=== PATIENT | male | born 1940 | race Caucasian/White ===

== ENCOUNTER 2022-05-17 18:37 | Inpatient (IN) | payer MEDICARE ==
[~2022-05-17] VITALS: Ht 172.7 cm; Wt 88.7 kg
--- NOTE | 2022-05-17 19:04 | ED Dyspnea ---
General Stated Complaint: FLU SYMPTOMS Source of Information: Patient Exam Limitations: No Limitations History of Present Illness Date Seen by Provider: May 17, 2022 Time Seen by Provider: 18:40 Initial Comments 81-year-old male presents emergency department today for shortness of breath. He denies any fevers but does have diffuse body aches. He has a productive cough which is no change from previous. He does have remote history of lung cancer but is currently cancer free. He has had a lobectomy and chemotherapy. He is having some mid central chest pains, mostly with inspiration. Is described as a pressure. He does have an oxygen concentrator at home that he uses as needed. For the last couple of days he has been using it nika crp-zkv-pryvk. Also has a history of COPD, coronary artery disease and CHF. He denies any current peripheral edema. No orthopnea. Allergies and Home Medications Allergies Coded Allergies: Penicillins (Verified Allergy, Unknown, 05/17/22) levofloxacin (Verified Allergy, Unknown, 05/17/22) Patient Home Medication List Home Medication List Reviewed: Yes Review of Systems Review of Systems Constitutional: weakness EENTM: nose congestion Respiratory: cough, phlegm, short of breath Cardiovascular: chest pain Gastrointestinal: no symptoms reported Genitourinary: no symptoms reported Musculoskeletal: muscle pain Skin: no symptoms reported Psychiatric/Neurological: No Symptoms Reported Endocrine: No Symptoms Reported Hematologic/Lymphatic: No Symptoms Reported Past Flkxihu-Wbsnau-Bflkzp Hx Patient Social History Tobacco Use?: No Use of E-Cig and/or Vaping dev: No Substance use?: No Alcohol Use?: No Past Medical History Surgery/Hospitalization HX: COPD, CHF, CAD, HTN, Lung CA, HLP Surgeries: Yes Family Medical History Reviewed Nursing Family Hx No Pertinent Family Hx Physical Exam Vital Signs Vital Signs - First Documented 05/17/22 18:38 Temp 37.2 Pulse 115 Resp 22 B/P (MAP) 96/54 (68) Pulse Ox 95 O2 Delivery Nasal Cannula O2 Flow Rate 3.00 Capillary Refill : Height, Weight, BMI Height: '" Weight: lbs. oz. kg; BMI Method: General Appearance: No Apparent Distress, WD/WN HEENT: PERRL/EOMI, Other (Dry mucus membranes) Neck: Normal Inspection, Non Tender Respiratory: Chest Non Tender, No Accessory Muscle Use, Other (Decreased breath sounds bilaterally, worse in the right base.) Cardiovascular: No Edema, No Murmur, Normal Peripheral Pulses, Tachycardia, Other (hypotension) Gastrointestinal: Normal Bowel Sounds, No Organomegaly, Non Tender, Soft Extremity: Normal Capillary Refill, Normal Inspection, Normal Range of Motion, Non Tender, No Calf Tenderness Neurologic/Psychiatric: Alert, Oriented x3, No Motor/Sensory Deficits Skin: Normal Color, Warm/Dry Lymphatic: No Adenopathy Focused Exam Lactate Level 05/17/22 18:56: Lactic Acid Level 2.45*H Lactic Acid Level Laboratory Tests Test 05/17/22 18:56 Lactic Acid Level 2.45 MMOL/L (0.50-2.00) *H Progress/Results/Core Measures Results/Orders Lab Results Laboratory Tests Test 05/17/22 18:50 05/17/22 18:56 05/17/22 19:24 Range/Units Influenza Type A (RT-PCR) Not Detected Not Detecte Influenza Type B (RT-PCR) Not Detected Not Detecte SARS-CoV-2 RNA (RT-PCR) Not Detected Not Detecte White Blood Count 16.5 H 4.3-11.0 10^3/uL Red Blood Count 3.78 L 4.30-5.52 10^6/uL Hemoglobin 12.3 L 13.3-17.7 g/dL Hematocrit 36 L 40-54 % Mean Corpuscular Volume 94 80-99 fL Mean Corpuscular Hemoglobin 33 25-34 pg Mean Corpuscular Hemoglobin Concent 35 32-36 g/dL Red Cell Distribution Width 16.4 H 10.0-14.5 % Platelet Count 170 130-400 10^3/uL Mean Platelet Volume 10.7 9.0-12.2 fL Immature Granulocyte % (Auto) 3 % Neutrophils (%) (Auto) 91 H 42-75 % Lymphocytes (%) (Auto) 3 L 12-44 % Monocytes (%) (Auto) 2 0-12 % Eosinophils (%) (Auto) 0 0-10 % Basophils (%) (Auto) 1 0-10 % Neutrophils # (Auto) 15.0 H 1.8-7.8 10^3/uL Lymphocytes # (Auto) 0.4 L 1.0-4.0 10^3/uL Monocytes # (Auto) 0.4 0.0-1.0 10^3/uL Eosinophils # (Auto) 0.0 0.0-0.3 10^3/uL Basophils # (Auto) 0.1 0.0-0.1 10^3/uL Immature Granulocyte # (Auto) 0.6 H 0.0-0.1 10^3/uL Neutrophils % (Manual) 52 % Lymphocytes % (Manual) 3 % Monocytes % (Manual) 2 % Eosinophils % (Manual) 1 % Basophils % (Manual) 0 % Metamyelocytes % 1 % Band Neutrophils 41 % Prothrombin Time 13.8 12.2-14.7 SEC INR Comment 1.0 0.8-1.4 Activated Partial Thromboplast Time 29 24-35 SEC Sodium Level 135 135-145 MMOL/L Potassium Level 3.3 L 3.6-5.0 MMOL/L Chloride Level 100 98-107 MMOL/L Carbon Dioxide Level 21 21-32 MMOL/L Anion Gap 14 5-14 MMOL/L Blood Urea Nitrogen 50 H 7-18 MG/DL Creatinine 1.54 H 0.60-1.30 MG/DL Estimat Glomerular Filtration Rate 45 BUN/Creatinine Ratio 32 Glucose Level 115 H 70-105 MG/DL Lactic Acid Level 2.45 *H 0.50-2.00 MMOL/L Calcium Level 8.7 8.5-10.1 MG/DL Corrected Calcium 9.3 8.5-10.1 MG/DL Total Bilirubin 1.1 H 0.1-1.0 MG/DL Aspartate Amino Transf (AST/SGOT) 96 H 5-34 U/L Alanine Aminotransferase (ALT/SGPT) 76 H 0-55 U/L Alkaline Phosphatase 107 40-136 U/L Troponin I < 0.30 <0.30 NG/ML Total Protein 6.9 6.4-8.2 GM/DL Albumin 3.2 3.2-4.5 GM/DL Urine Color YELLOW Urine Clarity CLEAR Urine pH 5.5 5-9 Urine Specific [place] 1.015 L 1.016-1.022 Urine Protein NEGATIVE NEGATIVE Urine Glucose (UA) NEGATIVE NEGATIVE Urine Ketones NEGATIVE NEGATIVE Urine Nitrite NEGATIVE NEGATIVE Urine Bilirubin NEGATIVE NEGATIVE Urine Urobilinogen 1.0 < = 1.0 MG/DL Urine Leukocyte Esterase NEGATIVE NEGATIVE Urine RBC (Auto) TRACE-I H NEGATIVE Urine RBC RARE /HPF Urine WBC RARE /HPF Urine Squamous Epithelial Cells 0-2 /HPF Urine Crystals NONE /LPF Urine Bacteria NEGATIVE /HPF Urine Casts PRESENT /LPF Urine Hyaline Casts RARE /LPF Urine Mucus NEGATIVE /LPF Urine Culture Indicated NO My Orders Orders - EREN VALENZUELA DO Cbc With Automated Diff (05/17/22 18:47) Comprehensive Metabolic Panel (05/17/22 18:47) Blood Culture (05/17/22 18:47) Urinalysis (05/17/22 18:47) Urine Culture (05/17/22 18:47) Protime With Inr (05/17/22 18:47) Partial Thromboplastin Time (05/17/22 18:47) Chest 1 View Ap/Pa Only (05/17/22 18:47) Ed Iv/Invasive Line Start (05/17/22 18:47) Vital Signs Adult Sepsis Patie Q15M (05/17/22 18:47) O2 (05/17/22 18:47) Remove Rings In Anticipation O (05/17/22 18:47) Lactic Acid Analyzer (05/17/22 18:47) Influenza A And B By Pcr (05/17/22 18:47) Covid 19 Inhouse Test (05/17/22 18:47) Ns Iv 500 Ml (Sodium Chloride 0.9%) (05/17/22 19:00) Troponin I Fs (05/17/22 18:57) Ekg Tracing (05/17/22 18:57) Monitor-Rhythm Ecg Trace Only (05/17/22 19:04) Manual Differential (05/17/22 18:56) Ceftriaxone 1 Gm Pre-Mix (Rocephin 1 Gm (05/17/22 19:15) Vancomycin Injection (Vancomycin Injecti (05/17/22 20:00) Ed Admission (Communication) (05/17/22 19:52) Medications Given in ED Current Medications Medications Dose Ordered Sig/Jana Route Start Time Stop Time Status Last Admin Dose Admin Ceftriaxone Sodium/Dextrose 50 ml @ 100 mls/hr ONCE ONCE IV 05/17/22 19:15 05/17/22 19:44 DC 05/17/22 19:19 100 MLS/HR Vancomycin HCl 1000 mg/Sodium Chloride 250 ml @ 250 mls/hr ONCE ONCE IV 05/17/22 20:00 05/17/22 20:59 DC 05/17/22 20:15 250 MLS/HR Vital Signs/I&O 1/3/23 1/3/23 1/3/23 18:38 20:34 20:41 Temp 37.2 Pulse 115 101 103 Resp 22 24 18 B/P (MAP) 96/54 (68) 69/43 95/72 (80) Pulse Ox 95 91 92 O2 Delivery Nasal Cannula Nasal Cannula Nasal Cannula O2 Flow Rate 3.00 3.00 3.00 05/18/22 00:00 Intake Total 675 ml Balance 675 ml Comment Sinus tachycardia with rate of 114 beats rhythm. Normal intervals. Left axis deviation. Q waves in the inferior leads. No ST or T wave abnormalities. No ectopy. No STEMI. Critical Care Note Critical Care Total Time (minutes) 45 Departure Communication (Admissions) Time/Spoke to Admitting Phy: 19:[address] Palafox about the patient presentation. She is comfortable transfer and accepts the patient to the ICU. Request inpatient care and states she will do acute orders. Patient remained borderline hypotensive throughout his emergency department stay, 90s systolic. This was persistent despite IV fluids. He has a MAP greater than 65. His tachycardia improved with IV fluids. He was hypoxic initially, 87-88% on room air. He does use as needed oxygen at home. He was placed on 2 L of oxygen via nasal cannula and maintained 92 to 94% thereafter. He is in the respiratory distress. Chest x-ray shows left lower lobe infiltrate. He started on Rocephin and vancomycin after identification of this. His COVID test and influenza testing are negative. There is one blood pressure reading in the chart of 63/43 which I believe to be erroneous. After this was taken I immediately went and readjust the blood pressure cuff and his blood pressure was 95/72. He remained alert and oriented relatively asymptomatic at this time I spoke with Dr. Sepulveda, she accepts the patient in transfer to the ICU [facility] in [place]. The patient initially did want to go to [facility]. I did speak with them prior to speaking with the physician at [place] and they were at capacity and cannot accept any transfers. Patient does have a mild elevation in his BUN and creatinine, I suspect the IV fluids he was given will likely help with this as is likely related to mild dehydration. He does meet sepsis criteria. Blood cultures were obtained prior to administration of IV antibiotics. He does not meet criteria for 30 cc/kg fluid bolus at this time. I have been judicious with fluids up until this point as the patient has a history of CHF and I do not want to cause volume overload. There is no evidence for ACS, PE. Impression Primary Impression: CAP (community acquired pneumonia) Qualified Codes: J18.9 - Pneumonia, unspecified organism Additional Impressions: Sepsis Qualified Codes: A41.9 - Sepsis, unspecified organism Hypotension Qualified Codes: I95.9 - Hypotension, unspecified Hypoxia Disposition: 30 STILL A PATIENT Condition: Stable Admissions Decision to Admit Reason: Admit from ER (General) Decision to Admit/Date: May 17, 2022 Time/Decision to Admit Time: 19:40 EREN VALENZUELA DO May 17, 2022 19:04
[2022-05-17 19:05] LABS: BASOPHILS # (AUTO) 0.1 10^3/uL (0.0-0.1); BASOPHILS % (AUTO) 1 % (0-10); EOSINOPHILS % (AUTO) 0 % (0-10); HEMATOCRIT 36 % (40-54); HEMOGLOBIN 12.3 g/dL (13.3-17.7); LYMPHOCYTES # (AUTO) 0.4 10^3/uL (1.0-4.0); LYMPHOCYTES % (AUTO) 3 % (12-44); MEAN CORPUSCULAR HEMOGLOBIN 33 pg (25-34); MEAN CORPUSCULAR HGB CONC 35 g/dL (32-36); MEAN CORPUSCULAR VOLUME 94 fL (80-99); MEAN PLATELET VOLUME 10.7 fL (9.0-12.2); MONOCYTES # (AUTO) 0.4 10^3/uL (0.0-1.0); MONOCYTES % (AUTO) 2 % (0-12); NEUTROPHILS % (AUTO) 91 % (42-75); PLATELET COUNT 170 10^3/uL (130-400); WHITE BLOOD COUNT 16.5 10^3/uL (4.3-11.0)
[2022-05-17] MEDS ORDERED: cefTRIAXone 1 GM PRE-MIX 50 ML IV ONE (19:15)
[2022-05-17 19:19] LABS: PROTHROMBIN TIME PATIENT 13.8 SEC (12.2-14.7)
[2022-05-17] MEDS: NS IV 500 ML 500 ML IV SCH ×2 (19:20→22:34)
--- NOTE | 2022-05-17 19:25 | Diagnostic Imaging Report ---
INDICATION: Dyspnea and hypoxia. Time of Exam: 7:02 PM No prior studies are available for comparison. The heart size is normal. There is some infiltrate in the left base obscuring the left hemidiaphragm. Right lung is clear. No effusion or pneumothorax is detected. IMPRESSION: Left basilar pneumonia. Dictated by: Dictated on workstation # [id number]
[2022-05-17 19:29] LABS: BILIRUBIN,TOTAL 1.1 MG/DL (0.1-1.0); BUN/CREATININE RATIO 32; CALCIUM 8.7 MG/DL (8.5-10.1); CARBON DIOXIDE 21 MMOL/L (21-32); CHLORIDE 100 MMOL/L (98-107); CREATININE SERUM 1.54 MG/DL (0.60-1.30); GFR ESTIMATED 45; GLUCOSE 115 MG/DL (70-105); POTASSIUM 3.3 MMOL/L (3.6-5.0); SODIUM 135 MMOL/L (135-145)
[2022-05-17 19:30] LABS: ALANINE AMINOTRANSFERASE 76 U/L (0-55); ALBUMIN 3.2 GM/DL (3.2-4.5); ALKALINE PHOSPHATASE 107 U/L (40-136); TOTAL PROTEIN 6.9 GM/DL (6.4-8.2)
[2022-05-17 19:39] LABS: BAND NEUTROPHILS 41 %; BASOPHILS % (MANUAL) 0 %; EOSINOPHILS % (MANUAL) 1 %; LYMPHOCYTES % (MANUAL) 3 %; MONOCYTES % (MANUAL) 2 %; NEUTROPHILS % (MANUAL) 52 %
[2022-05-17 19:40] LABS: METAMYELOCYTES % 1 %
[2022-05-17 19:44] LABS: BILIRUBIN,URINE NEGATIVE (NEGATIVE); CLARITY,URINE CLEAR; COLOR,URINE YELLOW; GLUCOSE, URINE (UA) NEGATIVE (NEGATIVE); KETONES,URINE NEGATIVE (NEGATIVE); LEUKOCYTE ESTERASE ,URINE NEGATIVE (NEGATIVE); NITRITE,URINE NEGATIVE (NEGATIVE); PH,URINE 5.5 (5-9); PROTEIN,URINE NEGATIVE (NEGATIVE)
[2022-05-17 19:48] LABS: BACTERIA,URINE NEGATIVE /HPF; RBC,URINE RARE /HPF; WBC,URINE RARE /HPF
[2022-05-17 19:49] LABS: HYALINE CASTS, URINE RARE /LPF; SQUAMOUS EPITHELIAL CELL,UR 0-2 /HPF
[2022-05-17] MEDS ORDERED: VANCOMYCIN INJECTION 1,000 MG in NS (IVPB) 250 ML IV ONE (20:00)
[2022-05-17] MEDS ORDERED: NS IV 500 ML 500 ML IV PRN (21:45)
[2022-05-17] MEDS ORDERED: diphenhydrAMINE 50 MG/ML INJ (BENADRYL) IVP PRN (21:45)
[2022-05-17] MEDS ORDERED: HYDROmorphone 2 MG/ML VIAL (DILAUDID) IV PRN (21:45)
[2022-05-17] MEDS ORDERED: polyethylene glycoL POWDER 17 GM (MIRALAX) PACK PO PRN (21:45)
[2022-05-17] MEDS ORDERED: ONDANSETRON 4 MG/2 ML (SDV) Z0FRAN IV PRN (21:45)
[2022-05-17] MEDS ORDERED: ANTACID SUSP 30 ML UDC (MYLANTA) PO PRN (21:45)
[2022-05-17] MEDS ORDERED: BISACODYL 10 MG SUPP (DULCOLAX) PR PRN (21:45)
[2022-05-17] MEDS ORDERED: LORazepam INJ 2 MG/ML (ATIVAN) VIAL IVP PRN (21:45)
[2022-05-17] MEDS ORDERED: VANCOMYCIN INJECTION 0.1 MG in NS (IVPB) 250 ML IV SCH (21:45)
[2022-05-17] MEDS ORDERED: LORazepam 0.5 MG (ATIVAN) TABLET PO PRN (21:45)
[2022-05-17] MEDS ORDERED: diphenhydrAMINE 25 MG TAB (BENADRYL) PO PRN (21:45)
[2022-05-17] MEDS ORDERED: ONDANSETRON 4 MG (ZOFRAN) ORAL DISSOLVE TAB PO PRN (21:45)
[2022-05-17] MEDS ORDERED: MELATONIN 3 MG TABLET PO PRN (21:45)
[2022-05-17 21:55] VITALS: BP 96/54
[2022-05-17] MEDS ORDERED: NS IV 1000 ML 1,000 ML ONE (21:55)
[2022-05-17] MEDS: NS IV 1000 ML 1,000 ML IV SCH (22:00)
[2022-05-17] MEDS ORDERED: RT-ALBUTEROL/IPRATROPIUM 3 ML (DUONEB) VIAL INH PRN (22:00)
[2022-05-17] MEDS ORDERED: VANCOMYCIN 500 MG/NS 100 ML IV ONE ×2 (22:00)
[2022-05-17] MEDS: CEFEPIME INJECTION 1,000 MG in NS (IVPB) 50 ML IV SCH (22:30)
[2022-05-17] MEDS: ENOXAPARIN 40 MG/0.4 ML (LOVENOX) SYR SC SCH (22:33)
--- NOTE | 2022-05-17 23:05 | Tele-ICU Consult ---
Progress Note New admit from ED, 81 yo M for pneumonia, septic shock Chart reviewed, video assessment. Awake, alert on NC Care plan per admitted ED reviewed. Abx, cultures Per report, sepsis protocol IVF to be received ABG pending Diagnosis: Septic shock, Pneumonia _X__ patient provided consent for the telehealth visit ___patient is not able to provide consent for the telehealth visit, service provided to critically care patient using implied consent doctrine. A total of _12_ minutes of critical care time was devoted to this patient, including reviewing this patient's available data, including medical history, events of note and test results. I have overseen the activities of other members of the care team under my direct supervision during events of the note . This was required to treat and/or prevent further deterioration of critical care conditions ( as above ). Service provided to a patient admitted to ICU bed via interactive E-CARE system with real-time audio and video telecommunications from [facility] tele- ICU hub located in [place], [place] KINSEY BINGHAM MD May 17, 2022 23:05
[2022-05-17] MEDS: methylPREDNISolone 40 MG/ML (Solu-MEDROL) VIAL IV SCH (23:19)
[2022-05-18] MEDS: ACETAMINOPHEN 325 MG TABLET PO PRN (00:51)
[2022-05-18 04:18] LABS: ABG BASE EXCESS -3.4 MMOL/L (-2.5-2.5); ABG OXYGEN SATURATION 98 % (94-100); ABG PCO2 36 MMHG (35-45); ABG PH 7.38 (7.37-7.43); ABG PO2 90 MMHG (79-93); ABG TCO2 22.2 MMOL/L (21.0-31.0); BASOPHILS # (AUTO) 0.1 10^3/uL (0.0-0.1); BASOPHILS % (AUTO) 1 % (0-10); EOSINOPHILS % (AUTO) 0 % (0-10); HEMATOCRIT 35 % (40-54); HEMOGLOBIN 11.7 g/dL (13.3-17.7); LYMPHOCYTES # (AUTO) 0.6 10^3/uL (1.0-4.0); LYMPHOCYTES % (AUTO) 3 % (12-44); MEAN CORPUSCULAR HEMOGLOBIN 33 pg (25-34); MEAN CORPUSCULAR HGB CONC 34 g/dL (32-36); MEAN CORPUSCULAR VOLUME 96 fL (80-99); MEAN PLATELET VOLUME 10.4 fL (9.0-12.2); MONOCYTES # (AUTO) 0.4 10^3/uL (0.0-1.0); MONOCYTES % (AUTO) 2 % (0-12); NEUTROPHILS # (AUTO) 18.2 10^3/uL (1.8-7.8); NEUTROPHILS % (AUTO) 91 % (42-75); PLATELET COUNT 149 10^3/uL (130-400); WHITE BLOOD COUNT 20.1 10^3/uL (4.3-11.0)
[2022-05-18 04:19] LABS: ALLENS TEST YES-POS; INSPIRED O2 3L; PATIENT TEMP 36.2; VENTILATOR NO
[2022-05-18 04:21] LABS: SMEAR SCAN COMMENT YES
[2022-05-18] MEDS: RT-ALBUTEROL/IPRATROPIUM 3 ML (DUONEB) VIAL INH SCH ×4 (04:25→21:15)
[2022-05-18 04:32] LABS: POTASSIUM 3.6 MMOL/L (3.6-5.0)
[2022-05-18 04:33] LABS: CALCIUM 8.1 MG/DL (8.5-10.1)
[2022-05-18 04:35] LABS: PHOSPHORUS 3.4 MG/DL (2.3-4.7); TOTAL PROTEIN 6.4 GM/DL (6.4-8.2)
[2022-05-18 04:36] LABS: BILIRUBIN,TOTAL 1.1 MG/DL (0.1-1.0)
[2022-05-18 04:37] LABS: MAGNESIUM 2.4 MG/DL (1.6-2.4)
[2022-05-18 04:38] LABS: CREATININE SERUM 1.27 MG/DL (0.60-1.30)
[2022-05-18] MEDS: NS IV 1000 ML 1,000 ML IV SCH (04:58)
[2022-05-18] MEDS: methylPREDNISolone 40 MG/ML (Solu-MEDROL) VIAL IV SCH ×4 (05:00→23:10)
[2022-05-18] MEDS: CEFEPIME INJECTION 1,000 MG in NS (IVPB) 50 ML IV SCH ×3 (05:32→21:05)
[2022-05-18] MEDS ORDERED: MAGNESIUM 1 GM/100 ML IVPB 100 ML IV SCH (06:00)
[2022-05-18] MEDS ORDERED: POTASSIUM CL 10MEQ/50ML IVPB 50 ML IV SCH (06:00)
[2022-05-18] MEDS ORDERED: KCL 20 MEQ TAB (K-DUR) PO SCH (06:00)
[2022-05-18] MEDS ORDERED: FLU QUAD HIGH DOSE 240 MCG/0.7 ML 2022-23 (FLUZONE) IM ONE (07:15)
[2022-05-18] MEDS ORDERED: KCL 20 MEQ TAB (K-DUR) PO ONE (08:00)
[2022-05-18] MEDS: DOCUSATE SODIUM 100 MG (COLACE) CAP PO SCH ×2 (08:27→19:54)
--- NOTE | 2022-05-18 09:13 | Physical Therapy Evaluation ---
PT Evaluation-General Medical Diagnosis Admission Date May 17, 2022 at 21:35 Medical Diagnosis: pneumonia Onset Date: May 17, 2022 Therapy Diagnosis Therapy Diagnosis: impaired mobility and strength Precautions Precautions/Isolations: Fall Prevention, Standard Precautions, Pressure Ulcer Referral Physician: Stephanie Sepulveda DO Reason for Referral: Evaluation/Treatment Medical History Additional Medical History Past Medical History Surgery/Hospitalization HX: COPD, CHF, CAD, HTN, Lung CA, HLP Reviewed History: Yes Social History Home: Single Level Current Living Status: Alone Entry Into Home: Level Entry Prior Prior Level of Function SCALE: Activities may be completed with or without assistive devices. 9-Uuprntqncp-nqunshw completes the activity by him/herself with no assistance from a helper. 5-Set-up or Clean-up Assistance-helper sets up or cleans up; patient completes activity. [place] assists only prior to or following the activity. 4-Supervision or Touching Assistance-helper provides verbal cues and/or touching/steadying and/or contact guard assistance as patient completes activity. Assistance may be provided throughout the activity or intermittently. 3-Partial/Moderate Assistance-helper does LESS THAN HALF the effort. [place] lifts, holds or supports trunk or limbs, but provides less than half the effort. 2-Substantial/Maximal Assistance-helper does MORE THAN HALF the effort. [place] lifts or holds trunk or limbs and provides more than half the effort. 6-Mkjpyuyyd-kigrtp does ALL the effort. Patient does none of the effort to complete the activity. Or, the assistance of 2 or more helpers is required for the patient to complete the activity. If activity was not attempted, code reason: 7-Patient Refused. 9-Not Applicable-not attempted and the patient did not perform the activity before the current illness, exacerbation or injury. 10-Not Attempted due to Environmental Limitations-(lack of equipment, weather restraints, etc.). 88-Not Attempted due to Medical Conditions or Safety Concerns. Bed Mobility: 6 Transfers (B,C,W/C): 6 Gait: 6 Stairs: 6 Indoor Mobility (Ambulation): Independent Stairs: Independent PT Evaluation-Current Subjective Patient in bed pre tx, agrees to PT, has no complaints of pain. Pt/Family Goals to be independent at home Objective Patient Orientation: Person, Place, Situation Attachments: Oxygen, IV ROM/Strength ROM Lower Extremities WNL Strength Lower Extremities LLE (hip flexion 3/5, knee flexion 4+/5, knee extension 4+/5, dorsiflexion 4+/5), RLE (hip flexion 3/5, knee flexion 4+/5, knee extension 4+/5, dorsiflexion 4+/5) Sensory Hearing: Functional Sensation Right Lower Extremit: Impaired Sensation Left Lower Extremity: Impaired Sensation Lower Extremities patient states he has some numbness/tingling on the bottom of his feet. Transfers Roll Left to Right (QC): 4 Lying to Sitting/Side of Bed(Q: 4 Sit to Stand (QC): 4 Chair/Ier-mv-Efeoo Xfer(QC): 4 Patient needs to have a BM, uses the toilet without assist, CGA for sit to stand and transfers Gait Walk 10 feet (QC): 4 Walk 50 ft with 2 Turns(QC): 4 Walk 150 ft (QC): 4 Distance: 150' Gait Assistive Device: FWW Comments/Gait Description slow but steady ambulation Balance Sitting Static: Normal Sitting Dynamic: Normal Standing Static: Fair Standing Dynamic: Fair Treatment BLE seated exercises x20 (AP, LAQ) Assessment/Needs Patient in recliner post tx with nurse call, phone, tray, all needs met. Patient has impaired mobility and strength, just needs CGA for transfers and ambulation. Rehab Potential: Fair PT Coal Chemist Goals Coal Chemist Goals PT Coal Chemist Goals Time Frame: May 25, 2022 Roll Left & Right (QC): 6 Sit to Lying (QC): 6 Lying-Sitting on Side/Bed(QC): 6 Sit to Stand (QC): 6 Chair/Wtt-jh-Xvqor Xfer(QC): 6 Walk 10 feet (QC): 6 Walk 50ft with 2 Turns (QC): 6 Walk 150 ft (QC): 6 PT Plan Problem List Problem List: Activity Tolerance, Functional Strength, Safety, Balance, Gait, Transfer, Bed Mobility, ROM Treatment/Plan Treatment Plan: Continue Plan of Care Treatment Plan: Bed Mobility, Education, Functional Activity Jose, Functional Strength, Gait, Safety, Therapeutic Exercise, Transfers Treatment Duration: May 25, 2022 Frequency: 6 times per week Estimated Hrs Per Day: .25 hour per day Patient and/or Family Agrees t: Yes Safety Risks/Education Patient Education: Gait Training, Transfer Techniques, Correct Positioning, Safety Issues Teaching Recipient: Patient Teaching Methods: Demonstration, Discussion Response to Teaching: Reinforcement Needed Discharge Recommendations Plan Patient will perform bed mobility and transfer training, balance and endurance training, functional strengthening, stair training, gait training, and education, to improve functional mobility and independence at home. Therapy Discharge Recommendati: Home & Family, Post Acute PT Time Time In: 818 Time Out: 840 DATE: May 18, 2022 Total Billed Treatment Time: 22 Total Billed Treatment 1 visit JUSTIN Mcclain' DALY YE PT May 18, 2022 09:13
--- NOTE | 2022-05-18 09:37 | Occupational Therapy Eval ---
OT Evaluation-General/PLF Medical Diagnosis Admission Date May 17, 2022 at 21:35 Medical Diagnosis: pneumonia Onset Date: May 17, 2022 Therapy Diagnosis Therapy Diagnosis: decreased ADL status Precautions Precautions/Isolations: Fall Prevention, Standard Precautions, Pressure Ulcer Referral Physician: Stephanie Sepulveda DO Referral Reason: Evaluation/Treatment Medical History Additional Medical History lung cancer (currently cancer free) s/p lobectomy & chemotherapy, COPD, CAD, CHF Current History ED with SOB, admitted to ICU with PNA and septic shock Social History Home: [facility]ment [facility] Current Living Status: Alone Entry Into Home: Level Entry ADL-Prior Level of Function SCALE: Activities may be completed with or without assistive devices. 8-Fpelkmzagg-vktoscg completes the activity by him/herself with no assistance from a helper. 5-Set-up or Clean-up Assistance-helper sets up or cleans up; patient completes activity. [place] assists only prior to or following the activity. 4-Supervision or Touching Assistance-helper provides verbal cues and/or touching/steadying and/or contact guard assistance as patient completes activity. Assistance may be provided throughout the activity or intermittently. 3-Partial/Moderate Assistance-helper does LESS THAN HALF the effort. [place] lifts, holds or supports trunk or limbs, but provides less than half the effort. 2-Substantial/Maximal Assistance-helper does MORE THAN HALF the effort. [place] lifts or holds trunk or limbs and provides more than half the effort. 9-Irrpbcobs-fozavy does ALL the effort. Patient does none of the effort to complete the activity. Or, the assistance of 2 or more helpers is required for the patient to complete the activity. If activity was not attempted, code reason: 7-Patient Refused. 9-Not Applicable-not attempted and the patient did not perform the activity before the current illness, exacerbation or injury. 10-Not Attempted due to Environmental Limitations-(lack of equipment, weather restraints, etc.). 88-Not Attempted due to Medical Conditions or Safety Concerns. ADL PLOF Comments Pt reports IND with ADLs and functional mobility without AD. He has a walk in shower with shower bench. Self Care: Independent Functional Cognition: Independent OT Current Status Subjective Pt up in recliner eating breakfast, agreeable to OT Tx. Mental Status/Objective Attachments: Oxygen Current Upper Extremity ROM WFL during tx Upper Extremity Strength grossly 4/5 ADL-Treatment Eating (QC): 6 Oral Hygiene (QC): 5 Lower Body Dressing (QC): 4 (CGA per clinical judgment.) On/Off Footwear (QC): 6 Toileting Hygiene (QC): 4 (CGA per PT report) Other Treatments Pt in recliner, agreeable to OT Tx. Pt able to eat breakfast independently. Pt provided information about PLOF and home set up, and demo'd ability to doff/don socks independently. Pt declined toileting at this time, per PT report, CGA required in stand but pt able to complete other aspects of toileting without assistance. Pt declined out of chair activities at this time, per PT report, pt currently requires CGA for transfers and mobility (150' with FWW). Per clinical judgment, pt would require CGA with ADLs when pt is standing. Post tx, pt in recliner, call light in reach and all needs met. Education OT Patient Education: Correct positioning, Energy conservation, Modified ADL techniques, Progress toward Goal/Update tx plan, Purpose of tx/functional activities, Rehab process Teaching Recipient: Patient Teaching Methods: Discussion Response to Teaching: Verbalize Understanding OT Shelter Goals Shelter Goals Time Frame: May 27, 2022 Eating (QC): 6 Oral Hygiene (QC): 6 Toileting Hygiene (QC): 6 Shower/Bathe Self (QC): 6 Upper Body Dressing (QC): 6 Lower Body Dressing (QC): 6 On/Off Footwear (QC): 6 Additional Goals: 1-Demonstrate ADL Tasks, 2-Verbalize Understanding, 3- ImproveStrength/Jose 1=Demonstrate adherence to instructed precautions during ADL tasks. 2=Patient will verbalize/demonstrate understanding of assistive devices/modifications for ADL. 3=Patient will improve strength/tolerance for activity to enable patient to perform ADL's. OT Education/Plan Problem List/Assessment Assessment: Decreased Activ Tolerance, Impaired Funct Balance, Impaired I ADL's, Impaired Self-Care Skills Pt would benefit from short term skilled OT Services in order to increase safety and independence with ADLs and functional mobility in order to maximize LOF for safe return home. Discharge Recommendations Plan/Recommendations: Continue POC Treatment Plan/Plan of Care Patient would benefit from OT for education, treatment and training to promote independence in ADL's, mobility, safety and/or upper extremity function for ADL's. Plan of Care: ADL Retraining, Functional Mobility, UE Funct Exercise/Act Treatment Duration: May 27, 2022 Frequency: 3 times per week (3-5 times per week) Estimated Hrs Per Day: .25 hour per day Agreement: Yes Rehab Potential: Fair Time Start Time: 09:15 Stop Time: 09:25 DATE: May 18, 2022 Total Time Billed (hr/min): 10 Billed Treatment Time 1, BOBBI SALAZAR OT May 18, 2022 09:37
--- NOTE | 2022-05-18 10:37 | Diagnostic Imaging Report ---
EXAMINATION: Chest 1 view HISTORY: Pneumonia. Shortness of breath. COMPARISON: 05/17/2022. FINDINGS: Stable patchy bibasilar opacities are present. No large pleural effusion or pneumothorax. Stable cardiac silhouette. IMPRESSION: 1. Stable bibasilar opacities which may represent infection and/or atelectasis. Dictated by: Dictated on workstation # [id number]
--- NOTE | 2022-05-18 11:13 | Consultation-Cardiology ---
HPI-Cardiology Cardiology Consultation Date of Consultation 05/18/22 Date of Admission Time Seen by Provider: 11:00 Indication: Pneumonia, hx CAD, CHF HPI Patient is a very pleasant 81 y/o male with history of CAD, CHF, COPD, AAA s/p stent, hx of lung CA s/p lobectomy, chemo and radiation approx 3 years ago, now in remission. Patient's primary physical integration practitioner is in [place], [place]. Presented to [facility] with complaints of increase dyspnea, fever and productive cough over the past week. C/o chest pain with inspiration. Denies any dizziness or lightheadedness. Patient reports history of coronary stent placement x 2 approx 3 years ago and, had routine cardiac workup done in the past several weeks, including stress test, echo and AAA US. Patient admitted to ICU for pneumonia and sepsis. Currently, he reports he is feeling a little better, still having productive cough. Home Medications & Allergies Allergies: Coded Allergies: Penicillins (Verified Allergy, Unknown, 05/17/22) levofloxacin (Verified Allergy, Unknown, 05/17/22) Home Medication List Reviewed: Yes GIL-Ipjvzc-Wjyity Hx Patient Social History Marital Status: Employed/Student: retired Smoking Status: Former Smoker Have you traveled recently?: No Alcohol Use?: No Past Medical History CAD, CHF, HTN, HLP, AAA s/p repair, Hx lung CA, COPD Family Medical History Significant Family History: No Pertinent Family Hx Review of Systems-General Review of Systems Constitutional: see HPI, weakness EENTM: see HPI, nose congestion; No blurred vision, No double vision Respiratory: see HPI, cough, dyspnea on exertion, phlegm, short of breath Cardiovascular: see HPI, chest pain (chest pain with deep inspiration) Gastrointestinal: no symptoms reported Genitourinary: no symptoms reported Musculoskeletal: muscle pain Skin: no symptoms reported Psychiatric/Neurological: No Symptoms Reported Reviewed Test Results Reviewed Test Results Lab Laboratory Tests 05/17/22 18:50: Influenza Type A (RT-PCR) Not Detected, Influenza Type B (RT-PCR) Not Detected, SARS-CoV-2 RNA (RT-PCR) Not Detected 05/17/22 18:56: White Blood Count 16.5H, Red Blood Count 3.78L, Hemoglobin 12.3L, Hematocrit 36L , Mean Corpuscular Volume 94, Mean Corpuscular Hemoglobin 33, Mean Corpuscular Hemoglobin Concent 35, Red Cell Distribution Width 16.4H, Platelet Count 170, Mean Platelet Volume 10.7, Immature Granulocyte % (Auto) 3, Neutrophils (%) (Auto) 91H, Lymphocytes (%) (Auto) 3L, Monocytes (%) (Auto) 2, Eosinophils (%) (Auto) 0, Basophils (%) (Auto) 1, Neutrophils # (Auto) 15.0H, Lymphocytes # (Auto) 0.4L, Monocytes # (Auto) 0.4, Eosinophils # (Auto) 0.0, Basophils # (Auto) 0.1, Immature Granulocyte # (Auto) 0.6H, Neutrophils % (Manual) 52, Lymphocytes % (Manual) 3, Monocytes % (Manual) 2, Eosinophils % (Manual) 1, Basophils % (Manual) 0, Metamyelocytes % 1, Band Neutrophils 41, Prothrombin Time 13.8, INR Comment 1.0, Activated Partial Thromboplast Time 29, Sodium Level 135, Potassium Level 3.3L, Chloride Level 100, Carbon Dioxide Level 21, Anion Gap 14, Blood Urea Nitrogen 50H, Creatinine 1.54H, Estimat Glomerular Filtration Rate 45, BUN/Creatinine Ratio 32, Glucose Level 115H, Lactic Acid Level 2.45*H, Calcium Level 8.7, Corrected Calcium 9.3, Total Bilirubin 1.1H, Aspartate Amino Transf (AST/SGOT) 96H, Alanine Aminotransferase (ALT/SGPT) 76H, Alkaline Keanu sphatase 107, Troponin I < 0.30, Total Protein 6.9, Albumin 3.2 05/17/22 19:24: Urine Color YELLOW, Urine Clarity CLEAR, Urine pH 5.5, Urine Specific [place] 1.015L, Urine Protein NEGATIVE, Urine Glucose (UA) NEGATIVE, Urine Ketones NEGATIVE, Urine Nitrite NEGATIVE, Urine Bilirubin NEGATIVE, Urine Urobilinogen 1.0, Urine Leukocyte Esterase NEGATIVE, Urine RBC (Auto) TRACE-IH, Urine RBC RARE, Urine WBC RARE, Urine Squamous Epithelial Cells 0-2, Urine Crystals NONE, Urine Bacteria NEGATIVE, Urine Casts PRESENT, Urine Hyaline Casts RARE, Urine Mucus NEGATIVE, Urine Culture Indicated NO 05/17/22 22:00: Lactic Acid Level 1.63 05/18/22 04:10: White Blood Count 20.1H, Red Blood Count 3.58L, Hemoglobin 11.7L, Hematocrit 35L , Mean Corpuscular Volume 96, Mean Corpuscular Hemoglobin 33, Mean Corpuscular Hemoglobin Concent 34, Red Cell Distribution Width 16.5H, Platelet Count 149, Mean Platelet Volume 10.4, Immature Granulocyte % (Auto) 4, Neutrophils (%) (Auto) 91H, Lymphocytes (%) (Auto) 3L, Monocytes (%) (Auto) 2, Eosinophils (%) (Auto) 0, Basophils (%) (Auto) 1, Neutrophils # (Auto) 18.2H, Lymphocytes # (Auto) 0.6L, Monocytes # (Auto) 0.4, Eosinophils # (Auto) 0.0, Basophils # (Auto) 0.1, Immature Granulocyte # (Auto) 0.9H, Blood Gas Puncture Site RIGHT RADIAL, Blood Gas Patient Temperature 36.2, Arterial Blood pH 7.38, Arterial Blood Partial Pressure CO2 36, Arterial Blood Partial Pressure O2 90, Arterial Blood HCO3 21L, Arterial Blood Total CO2 22.2, Arterial Blood Oxygen Saturation 98, Arterial Blood Base Excess -3.4L, Price Test YES-POS, Blood Gas Ventilator Setting NO, Blood Gas Inspired Oxygen 3L, Sodium Level 138, Potassium Level 3.6, Chloride Level 108H, Carbon Dioxide Level 19L, Anion Gap 11, Blood Urea Nitrogen 43H, Creatinine 1.27, Estimat Glomerular Filtration Rate 57, BUN/Creatinine Ratio 34, Glucose Level 152H, Calcium Level 8.1L, Corrected Calcium 8.9, Phosphorus Level 3.4, Magnesium Level 2.4, Total Bilirubin 1.1H, Aspartate Amino Transf (AST/SGOT) 93H, Alanine Aminotransferase (ALT/SGPT) 90H, Alkaline Phosphatase 89, Total Protein 6.4, Albumin 3.0L, Smear Scan YES ECG Impression ECG Initial ECG Rhythm: S.Tach Physical Exam Physical Exam Vital Signs Vital Signs - First Documented 05/17/22 05/17/22 18:38 21:55 Temp 37.2 Pulse 115 Resp 22 B/P (MAP) 96/54 (68) Pulse Ox 95 O2 Delivery Nasal Cannula O2 Flow Rate 3.00 FiO2 32 Capillary Refill : Less Than 3 Seconds Height, Weight, BMI Height: '" Weight: lbs. oz. kg; 26.78 BMI Method: General Appearance: No Apparent Distress, WD/WN HEENT: PERRL/EOMI, Other (Dry mucus membranes) Neck: Normal Inspection, Non Tender Respiratory: Chest Non Tender, No Accessory Muscle Use, Other (Decreased breath sounds bilaterally, worse in the right base.) Cardiovascular: No Edema, No Murmur, Normal Peripheral Pulses, Tachycardia, Other (hypotension) Gastrointestinal: Normal Bowel Sounds, No Organomegaly, Non Tender, Soft Extremity: Normal Capillary Refill, Normal Inspection, Normal Range of Motion, Non Tender, No Calf Tenderness Neurologic/Psychiatric: Alert, Oriented x3, No Motor/Sensory Deficits Skin: Normal Color, Warm/Dry Lymphatic: No Adenopathy A/P-Cardiology Admission Diagnosis Pneumonia with sepsis CAD CHF HTN Assessment/Plan Pneumonia with sepsis, management per medical services CAD, reporting history of stent placement x 2 approx 3 years ago with primary physical integration practitioner at [facility]. Reporting recent workup done in the last 2 weeks, including stress test and echo. I will try to obtain copy for further review. CHF by history, reporting recent echo done at [facility]. I will repeat 2D echo COPD AAA with history of stent graft. Patient reports recent AAA US and schedule for CT next week. HTN, currently borderline hypotensive Monitor blood pressure HLP Hx of lung CA, s/p lobectomy, chemo and radiation approx 3 years ago. Currently in remission Acute renal insufficiency, likely secondary to mild dehydration, receiving IVFs, continue to monitor. Thank you for allowing us to participate in the management of Mr. Prieto. This is Kimberli Feng PA-C, as a scribe for Dr. Murray. Patient was seen and evaluated with Kimberli, I interviewed and examined the patient, discussed with Kimberli the management plan and agree with the current scribed note Patient was admitted for shortness of breath, generalized weakness, pneumonia and sepsis Has extensive cardiac history and congestive heart failure. Will evaluate 2D echo, continue with antibiotics, monitor closely KIMBERLI FORDE May 18, 2022 11:13 MIRANDA MURRAY MD May 18, 2022 14:14
--- NOTE | 2022-05-18 11:26 | Tele-ICU Progress Note ---
Subjective Date Seen by a Provider: May 18, 2022 Time Seen by a Provider: 11:25 Subjective/Events-last exam (Tele-ICU Physician , consultation) Available chart/ vitals / labs / Images reviewed H&P is from ER notes Patient's information available about PMH, allergy reviewed in EMR. ROS as per chart and RN report Video assessment done using teleICU camera, rest of exam as per RN Discussed with RN. This patient with past medical history of COPD, coronary artery disease, congestive heart failure and remote history of lung cancer status post lobectomy and chemotherapy apparently he is in remission now presented to the emergency room yesterday with a complaint of shortness of breath cough with expectoration of sputum body aches. He also has a diarrhea. He did found to have a infiltrate in the lungs with low lung volumes and hypotension requiring fluid challenges. He is admitted to the intensive care unit with a diagnosis of pneumonia, septic shock and acute kidney injury. After fluid bolus and the initial antibiotics he is feeling like a new person. He has no fever at this time. Impression 1. Community-acquired pneumonia 2. COPD exacerbation 3. Possible septic shock 4. Acute kidney injury. 5. History of coronary artery disease. Recommendations 1. Continue IV fluid resuscitation 2. IV antibiotics per primary care 3. We will give DVT prophylaxis and ulcer prophylaxis 4. Bronchodilator therapy and steroids. Coordination of care with bedside consultants and primary care physician. Sepsis Event Evaluation Height, Weight, BMI Height: '" Weight: lbs. oz. kg; 26.78 BMI Method: Focused Exam Lactate Level 05/17/22 18:56: Lactic Acid Level 2.45*H 05/17/22 22:00: Lactic Acid Level 1.63 Exam Exam Patient acknowledged, consented, and participated in this virtual visit which was conducted using real time audio/video Vital Signs Date Time Temp Pulse Resp B/P (MAP) Pulse Ox O2 Delivery O2 Flow Rate FiO2 05/18/22 10:00 73 26 107/65 (79) 93 Nasal Cannula 3.00 05/18/22 09:00 60 24 104/72 (83) 97 Nasal Cannula 3.00 05/18/22 08:53 97 Nasal Cannula 3.00 05/18/22 08:00 51 20 102/67 (79) 96 Nasal Cannula 3.00 05/18/22 08:00 96 Nasal Cannula 3.00 05/18/22 07:43 36.3 1/4/23 07:14 53 05/18/22 07:00 55 23 107/63 (78) 95 Nasal Cannula 3.00 05/18/22 06:00 56 20 100/56 (71) 97 Nasal Cannula 3.00 05/18/22 05:00 55 24 101/57 (72) 97 Nasal Cannula 3.00 05/18/22 04:18 36.2 05/18/22 04:00 97 Nasal Cannula 3.00 05/18/22 04:00 36.6 56 22 122/79 (93) 97 Nasal Cannula 3.00 05/18/22 03:00 61 25 114/63 (80) 95 Nasal Cannula 3.00 05/18/22 02:00 64 26 118/69 (85) 97 Nasal Cannula 3.00 05/18/22 01:00 70 05/18/22 01:00 70 21 113/70 (84) 94 Nasal Cannula 3.00 05/18/22 00:54 71 22 112/58 (76) 94 Nasal Cannula 3.00 05/17/22 23:35 92 Nasal Cannula 3.00 05/17/22 23:20 37.4 96 32 89/56 (67) 92 Nasal Cannula 3.00 05/17/22 22:15 Nasal Cannula 3.00 05/17/22 22:15 98 28 97/56 (70) 96 Nasal Cannula 3.00 05/17/22 22:03 100 18 104/64 (77) 95 Nasal Cannula 3.00 05/17/22 21:55 37.2 115 95 32 05/17/22 21:54 99 23 87/53 (64) 94 Nasal Cannula 3.00 05/17/22 21:41 99 05/17/22 21:40 37.5 108 18 95/58 (70) 92 Nasal Cannula 3.00 05/17/22 20:41 103 18 95/72 (80) 92 Nasal Cannula 3.00 05/17/22 20:34 101 24 69/43 91 Nasal Cannula 3.00 05/17/22 18:38 37.2 115 22 96/54 (68) 95 Nasal Cannula 3.00 I & O 05/18/22 07:00 Intake Total 2375 ml Output Total 575 ml Balance 1800 ml Height & Weight Height: '" Weight: lbs. oz. kg; 26.78 BMI Method: General Appearance: No Apparent Distress, WD/WN HEENT: PERRL/EOMI, Other (Dry mucus membranes) Neck: Normal Inspection, Non Tender Respiratory: Chest Non Tender, No Accessory Muscle Use, Other (Decreased breath sounds bilaterally, worse in the right base.) Cardiovascular: No Edema, No Murmur, Normal Peripheral Pulses, Tachycardia, Other (hypotension) Capillary Refill: Less Than 3 Seconds Extremity: Normal Capillary Refill, Normal Inspection, Normal Range of Motion, Non Tender, No Calf Tenderness Neurologic/Psychiatric: Alert, Oriented x3, No Motor/Sensory Deficits Skin: Normal Color, Warm/Dry Lymphatic: No Adenopathy Other comments PE PER RN Results Lab Laboratory Tests 05/17/22 18:56 05/18/22 04:10 Assessment/Plan Assessment/Plan ABOVE Critical Care: Critically Ill Patient Time spent with patient (mins): 27 KANWAL GARCIA MD May 18, 2022 11:26
[2022-05-18] MEDS ORDERED: FAMOTIDINE 20 MG (PEPCID) TABLET PO PRN (11:30)
[2022-05-18] MEDS: DOXYCYCLINE INJECTION 100 MG in NS (IVPB) 100 ML IV SCH ×2 (12:37→22:08)
[2022-05-18] MEDS: LACTOBACILLUS ACIDOPHILUS (PROBIOTIC) CAPSULE PO SCH ×2 (12:38→17:16)
[2022-05-18] MEDS ORDERED: HYDR25TA4 PO (12:40)
[2022-05-18] MEDS ORDERED: ATOR40TA70 PO (12:40)
[2022-05-18] MEDS ORDERED: TMSL.4C PO (12:40)
[2022-05-18] MEDS ORDERED: MTP100TCR PO (12:40)
[2022-05-18] MEDS ORDERED: ACET-2267 PO (12:40)
[2022-05-18] MEDS ORDERED: LISI10TA25 PO (12:40)
[2022-05-18] MEDS ORDERED: UMEC1BLS INH (12:40)
--- NOTE | 2022-05-18 13:40 | History & Physical ---
DAVIS MATHIS I 05/18/22 1340: History of Present Illness History of Present Illness Reason for visit/HPI Kemar Prieto is an 81 YoM with PMH of lung cancer (post lobectomy and chemotherapy, currently in remission), COPD, CAD, CHF, and HTN, presenting to the hospital yesterday with complaints of central chest pressure and pain with inspiration, fever, and a productive cough over the past week. He uses an oxygen concentrator at home as needed, and has been using it around the clock for the past week. He denies lightheadedness during position changes. While in the ED he was subsequently found to have L basilar infiltrates in his left lung and was hypotensive (96/54) and admitted to the ICU with a diagnosis of pneumonia, septic shock and OMAYRA. After being bolused with fluid and antibiotics he is feeling much improved. Date of Admission May 17, 2022 at 21:35 Date Seen by a Provider: May 18, 2022 Time Seen by a Provider: 13:57 I consulted on this patient on 05/18/22 09:[address] Hennessy Admitting Physician Admitting Physician: Stephanie Hennessy DO Attending Physician: Stephanie Hennessy DO Consult Cardiology Allergies and Home Medications Allergies Coded Allergies: Penicillins (Verified Allergy, Unknown, 05/17/22) levofloxacin (Verified Allergy, Unknown, 05/17/22) Patient Home Medication List Acetaminophen (Tylenol Extra Strength) 500 Mg Tablet, 1,000 MG PO Q8H PRN for PAIN-MILD (1-4), (Reported) Entered as Reported by: BOYD BARBER on 05/18/221239 Last Action: Held Atorvastatin Calcium (Atorvastatin Calcium) 40 Mg Tablet, 40 MG PO DAILY, (Reported) Entered as Reported by: BOYD BARBER on 05/18/221239 Last Action: Continued Hydrochlorothiazide (Hydrochlorothiazide) 25 Mg Tablet, 25 MG PO DAILY, (Reported) Entered as Reported by: BOYD BARBER on 05/18/221239 Last Action: Held Lisinopril (Lisinopril) 10 Mg Tablet, 10 MG PO DAILY, (Reported) Entered as Reported by: BOYD BARBER on 05/18/221239 Last Action: Continued Metoprolol Succinate (Metoprolol Succinate) 100 Mg Tab.er.24h, 100 MG PO DAILY, (Reported) Entered as Reported by: BOYD BARBER on 05/18/221239 Last Action: Continued Tamsulosin HCl (Flomax) 0.4 Mg Cap, 0.4 MG PO DAILY, (Reported) Entered as Reported by: BOYD BARBER on 05/18/221239 Last Action: Continued Umeclidinium Brm/Vilanterol Tr (Anoro Ellipta 62.5-25 Mcg INH) 62.5 Mcg-25 Mcg/Actuation Blst.w.dev, 1 PUFF INH DAILY, (Reported) Entered as Reported by: BOYD BARBER on 05/18/221239 Last Action: Held Past Cbyxnya-Smpqau-Mzhzhj Hx Patient Social History Employed/Student: retired Tobacco Use?: No Tobacco type used: Cigarettes Smoking Status: Former Smoker Use of E-Cig and/or Vaping dev: No Substance use?: No Alcohol Use?: No Pt feels they are or have been: No Immunizations Up To Date Tetanus Booster (TDap): Less Than 5 Years Hepatitis A: No Hepatitis B: No Current Status Advance Directives: No Communicates: Verbally Primary Language: Czech Preferred Spoken Language: Czech Is interpretation needed?: No Sensory deficits: Vision impairment Implanted or Applied Medical D: Orthopedic hardware Past Medical History Surgeries: Lobectomy COPD Coronary Artery Disease Lung Did You Recieve Any Treatments: Yes What Type of Treatment Did You: Chemotherapy, Surgical Intervention Family Medical History Reviewed Nursing Family Hx No Pertinent Family Hx Review of Systems Constitutional: weakness EENTM: nose congestion Respiratory: cough, phlegm Cardiovascular: chest pain Gastrointestinal: No abdominal pain Musculoskeletal: muscle pain Skin: no symptoms reported Psychiatric/Neurological: No Symptoms Reported All Other Systems Reviewed Negative Unless Noted: Yes Physical Exam Vital Signs Vital Signs - First Documented 05/17/22 05/17/22 18:38 21:55 Temp 37.2 Pulse 115 Resp 22 B/P (MAP) 96/54 (68) Pulse Ox 95 O2 Delivery Nasal Cannula O2 Flow Rate 3.00 FiO2 32 Capillary Refill : Less Than 3 Seconds Height, Weight, BMI Height: '" Weight: lbs. oz. kg; 26.78 BMI Method: General Appearance: Moderate Distress Eyes: Bilateral Eye Normal Inspection, Bilateral Eye PERRL, Bilateral Eye EOMI HEENT: PERRL/EOMI, TMs Normal, Normal ENT Inspection, Pharynx Normal Neck: Full Range of Motion, Normal Inspection, Non Tender, Supple, Carotid Bruit Respiratory: Crackles Cardiovascular: Irregularly Irregular Gastrointestinal: Normal Bowel Sounds, No Organomegaly, No Pulsatile Mass, Non Tender, Soft Rectal: Deferred Back: Normal Inspection, No CVA Tenderness, No Vertebral Tenderness Extremity: Normal Capillary Refill, Normal Inspection, Normal Range of Motion, Non Tender, No Calf Tenderness, No Pedal Edema Neurologic/Psychiatric: Alert, Oriented x3, No Motor/Sensory Deficits, Normal Mood/Affect Skin: Normal Color, Warm/Dry Assessment/Plan Assessment and Plan Kemar Prieto is an 81 YoM with PMH of lung cancer, CAD, CHF, COPD, AAA s/p stent graft, HTN, and HLP admitted to ICU for sepsis and pneumonia. Problems: (1) Hypoxia Status: Acute Assessment & Plan: - Rarely uses Oxygen concentrator at home as baseline - O2 supplementation, wean as tolerated (2) Hypotension Status: Acute Qualifiers: Qualified Codes: I95.9 - Hypotension, unspecified Assessment & Plan: - Borderline low BP - Continue to monitor with fluid resuscitation therapy. (3) CAP (community acquired pneumonia) Status: Acute Qualifiers: Qualified Codes: J18.9 - Pneumonia, unspecified organism Assessment & Plan: - WBC 16.5 -> 20.1 - Started broad spectrum antibiotics as above for sepsis - Sputum culture and sensitivities - Continue supplemental O2, wean as tolerated, does use concentrator at baseline - incentive spirometry - Antitussives as needed (4) Sepsis Status: Acute Qualifiers: Assessment & Plan: - Lactate 1.63 in ED - Cr. 1.27 - WBC 16.5 on admission -> 20.1 - Source: CXR showing infiltrate in L lung - Started on Cefepime and vanco, will follow sensitivities - Blood cultures pending - Improving clinically, consider transfer to floor - Continue monitoring IVF Anemia (11.7 ) likely due to hemodilution - continue to monitor. (5) Acute kidney injury superimposed on chronic kidney disease Status: Acute Assessment & Plan: - Mild, likely secondary to mild dehydration continue to monitor with fluid resuscitation (6) Mixed hyperlipidemia Assessment & Plan: - Continue to monitor STEPHANIE HENNESSY DO 05/19/22 0453: Allergies and Home Medications Allergies Coded Allergies: Penicillins (Verified Allergy, Unknown, 05/17/22) levofloxacin (Verified Allergy, Unknown, 05/17/22) Patient Home Medication List Home Medication List Reviewed: Yes Acetaminophen (Tylenol Extra Strength) 500 Mg Tablet, 1,000 MG PO Q8H PRN for PAIN-MILD (1-4), (Reported) Entered as Reported by: BOYD BARBER on 05/18/221239 Last Action: Held Atorvastatin Calcium (Atorvastatin Calcium) 40 Mg Tablet, 40 MG PO DAILY, (Reported) Entered as Reported by: BOYD BARBER on 05/18/221239 Last Action: Continued Hydrochlorothiazide (Hydrochlorothiazide) 25 Mg Tablet, 25 MG PO DAILY, (Reported) Entered as Reported by: BOYD BARBER on 05/18/221239 Last Action: Held Lisinopril (Lisinopril) 10 Mg Tablet, 10 MG PO DAILY, (Reported) Entered as Reported by: BOYD BARBER on 05/18/221239 Last Action: Continued Metoprolol Succinate (Metoprolol Succinate) 100 Mg Tab.er.24h, 100 MG PO DAILY, (Reported) Entered as Reported by: BOYD BARBER on 05/18/221239 Last Action: Continued Tamsulosin HCl (Flomax) 0.4 Mg Cap, 0.4 MG PO DAILY, (Reported) Entered as Reported by: BOYD BARBER on 05/18/221239 Last Action: Continued Umeclidinium Brm/Vilanterol Tr (Anoro Ellipta 62.5-25 Mcg INH) 62.5 Mcg-25 Mcg/Actuation Blst.w.dev, 1 PUFF INH DAILY, (Reported) Entered as Reported by: BOYD BARBER on 05/18/221239 Last Action: Held Past Bjuodus-Arxhdp-Tnbzuy Hx Patient Social History Marrital Status: Employed/Student: retired Smoking Status: Never a Smoker Past Medical History Surgeries: Lobectomy COPD Chronic Edema/Swelling, Coronary Artery Disease Review of Systems Constitutional: see HPI, weakness Respiratory: cough Cardiovascular: chest pain Physical Exam General Appearance: WD/WN, Chronically ill, Mild Distress Respiratory: No Accessory Muscle Use, No Respiratory Distress, Crackles Cardiovascular: Irregularly Irregular Assessment/Plan Admission Diagnosis Admission Status: Inpatient Order (span 2 midnights) Reason for Inpatient Admission: sepsis Supervisory-Addendum Brief Verification & Attestation Participated in pt care: history, MDM, physical Personally performed: exam, history, MDM, supervision of care Care discussed with: Medical Student Procedures: n/a Results interpretation: Verified all documentation Verification and Attestation of Medical Student E/M Service A medical student performed and documented this service in my presence. I reviewed and verified all information documented by the medical student and made modifications to such information, when appropriate. I personally performed the physical exam and medical decision making. Stephanie Hennessy, May 19, 2022,04:52 DAVIS MATHIS I May 18, 2022 13:40 STEPHANIE HENNESSY DO May 19, 2022 04:53
[2022-05-18] MEDS: ENOXAPARIN 40 MG/0.4 ML (LOVENOX) SYR SC SCH (19:51)
[2022-05-18] MEDS ORDERED: VANCOMYCIN 1250 MG/NS 250 ML IVPB IV SCH ×2 (20:00)
[2022-05-18 20:09] VITALS: BP 124/59
[2022-05-19] VITALS: BP 129/60
[2022-05-19] MEDS: ACETAMINOPHEN 325 MG TABLET PO PRN (02:17)
[2022-05-19] MEDS: RT-ALBUTEROL/IPRATROPIUM 3 ML (DUONEB) VIAL INH SCH ×4 (02:53→21:44)
[2022-05-19 04:09] VITALS: BP 101/62
[2022-05-19] MEDS: methylPREDNISolone 40 MG/ML (Solu-MEDROL) VIAL IV SCH (05:04)
[2022-05-19] MEDS: CEFEPIME INJECTION 1,000 MG in NS (IVPB) 50 ML IV SCH ×4 (05:05→23:25)
[2022-05-19 05:31] LABS: BASOPHILS # (AUTO) 0.1 10^3/uL (0.0-0.1); BASOPHILS % (AUTO) 0 % (0-10); EOSINOPHILS % (AUTO) 0 % (0-10); HEMATOCRIT 34 % (40-54); HEMOGLOBIN 11.5 g/dL (13.3-17.7); LYMPHOCYTES # (AUTO) 0.7 10^3/uL (1.0-4.0); LYMPHOCYTES % (AUTO) 4 % (12-44); MEAN CORPUSCULAR HEMOGLOBIN 33 pg (25-34); MEAN CORPUSCULAR HGB CONC 34 g/dL (32-36); MEAN CORPUSCULAR VOLUME 97 fL (80-99); MEAN PLATELET VOLUME 10.5 fL (9.0-12.2); MONOCYTES # (AUTO) 0.4 10^3/uL (0.0-1.0); MONOCYTES % (AUTO) 2 % (0-12); NEUTROPHILS # (AUTO) 16.7 10^3/uL (1.8-7.8); NEUTROPHILS % (AUTO) 93 % (42-75); PLATELET COUNT 170 10^3/uL (130-400); WHITE BLOOD COUNT 17.9 10^3/uL (4.3-11.0)
[2022-05-19 05:55] LABS: BILIRUBIN,TOTAL 0.4 MG/DL (0.1-1.0); CALCIUM 8.4 MG/DL (8.5-10.1); CREATININE SERUM 1.11 MG/DL (0.60-1.30); MAGNESIUM 2.2 MG/DL (1.6-2.4); POTASSIUM 3.8 MMOL/L (3.6-5.0); TOTAL PROTEIN 6.4 GM/DL (6.4-8.2)
[2022-05-19 07:50] VITALS: BP 147/70
--- NOTE | 2022-05-19 08:28 | Occupational Ther Daily Note ---
OT Current Status-Daily Note Subjective Feels the temperature in the room is cold, did not sleep well last night Mental Status/Objective Patient Orientation: Person, Place, Time, Situation ADL-Treatment Sponge bathed UB with bath wipes while standing at sink, unable to locate FWW that was provided yesterday, gait belt used w/ CGA Therapy Code Descriptions/Definitions Functional [place] Measure: 0=Not Assessed/NA 4=Minimal Assistance 1=Total Assistance 5=Supervision or Setup 2=Maximal Assistance 6=Modified [place] 3=Moderate Assistance 7=Complete IndependenceSCALE: Activities may be completed with or without assistive devices. 9-Gsssacmioe-pefcpur completes the activity by him/herself with no assistance from a helper. 5-Set-up or Clean-up Assistance-helper sets up or cleans up; patient completes activity. [place] assists only prior to or following the activity. 4-Supervision or Touching Assistance-helper provides verbal cues and/or luli mtai/steadying and/or contact guard assistance as patient completes activity. Assistance may be provided throughout the activity or intermittently. 3-Partial/Moderate Assistance-helper does LESS THAN HALF the effort. [place] lifts, holds or supports trunk or limbs, but provides less than half the effort. 2-Substantial/Maximal Assistance-helper does MORE THAN HALF the effort. [place] lifts or holds trunk or limbs and provides more than half the effort. 7-Trzfdewji-vurfsh does ALL the effort. Patient does none of the effort to complete the activity. Or, the assistance of 2 or more helpers is required for the patient to complete the activity. If activity was not attempted, code reason: 7-Patient Refused. 9-Not Applicable-not attempted and the patient did not perform the activity before the current illness, exacerbation or injury. 10-Not Attempted due to Environmental Limitations-(lack of equipment, weather restraints, etc.). 88-Not Attempted due to Medical Conditions or Safety Concerns. Eating (QC): 7 Oral Hygiene (QC): 5 Bathing Location: L Arm, R Arm, Chest, Abdomen Shower/Bathe Self (QC): 5 (no clean garemts availabel post sponge bathe, pt remianined in gown and buton down long sleeve shirt) Upper Body Dressing (QC): 5 Education OT Patient Education: Energy conservation, Progress toward Goal/Update tx plan, Purpose of tx/functional activities, Rehab process, Safety issues, Transfer techniques Teaching Recipient: Patient Teaching Methods: Demonstration, Discussion Response to Teaching: Verbalize Understanding, Return Demonstration, Reinforcement Needed OT [facility] Goals [employer] Goals Time Frame: May 27, 2022 Eating (QC): 6 Oral Hygiene (QC): 6 Toileting Hygiene (QC): 6 Shower/Bathe Self (QC): 6 Upper Body Dressing (QC): 6 Lower Body Dressing (QC): 6 On/Off Footwear (QC): 6 Additional Goals: 1-Demonstrate ADL Tasks, 2-Verbalize Understanding, 3- ImproveStrength/Jose 1=Demonstrate adherence to instructed precautions during ADL tasks. 2=Patient will verbalize/demonstrate understanding of assistive devices/modifications for ADL. 3=Patient will improve strength/tolerance for activity to enable patient to perform ADL's. OT Education/Plan Problem List/Assessment Pt would benefit from short term skilled OT Services in order to increase safety and independence with ADLs and functional mobility in order to maximize LOF for safe return home. Discharge Recommendations Plan/Recommendations: Continue POC Treatment Plan/Plan of Care Treatment,Training & Education: Yes Patient would benefit from OT for education, treatment and training to promote independence in ADL's, mobility, safety and/or upper extremity function for ADL's. Plan of Care: ADL Retraining, Functional Mobility, UE Funct Exercise/Act Treatment Duration: May 27, 2022 Frequency: 3 times per week (3-5 times per week) Estimated Hrs Per Day: .25 hour per day Agreement: Yes Rehab Potential: Fair Time Start Time: 07:49 Stop Time: 08:10 DATE: May 19, 2022 Total Time Billed (hr/min): 21 Billed Treatment Time 1 visit 1 ADL 21 minutes YINA ALMEIDA OT May 19, 2022 08:28
--- NOTE | 2022-05-19 08:46 | Cardiology Progress Note ---
Subjective Date Seen by Provider: May 19, 2022 Time Seen by Provider: 08:44 Subjective/Events-last exam Patient sitting up in chair, eating breakfast, states he is feeling much better. Denies any chest pain Focused Exam Lactate Level 05/17/22 18:56: Lactic Acid Level 2.45*H 05/17/22 22:00: Lactic Acid Level 1.63 Objective-Cardiology Exam Last Set of Vital Signs Vital Signs 05/17/22 05/19/22 21:55 11:29 Temp 36.5 Pulse 79 Resp 18 B/P (MAP) 140/66 (90) Pulse Ox 90 O2 Delivery Nasal Cannula O2 Flow Rate 1.00 FiO2 32 I&O Intake and Output 05/19/22 00:00 Intake Total 2440 ml Output Total 1900 ml Balance 540 ml Intake Oral 1390 ml IV Total 1050 ml Output Urine Total 1900 ml # Voids 1 General: Alert, Oriented X3 HEENT: Atraumatic, PERRLA Neck: Supple Lungs: Clear to Auscultation, Normal Air Movement Heart: Regular Rate Abdomen: Soft Skin: No Rashes, No Significant Lesion Neuro: Normal Speech, Cranial Nerves 3-12 NL Psych/Mental Status: Mental Status NL Results Lab Laboratory Tests 05/19/22 05:23 A/P-Cardiology Admission Diagnosis Pneumonia with sepsis CAD CHF HTN Assessment/Plan Pneumonia with sepsis,improving, management per medical services CAD, reporting history of stent placement x 2 approx 3 years ago with primary ca rdiologist at [facility]. Reporting recent workup done in the last 2 weeks, including stress test and echo. I will try to obtain copy for further review. CHF, 2D Echo done 05/18/22 showing EF 60-65%, grade 2 diastolic dysfunction, aortic sclerosis without stenosis, PA 30mmHg. COPD AAA with history of stent graft. Patient reports recent AAA US and schedule for CT next week. HTN, home blood pressure medications restarted, continue to monitor. HLP Hx of lung CA, s/p lobectomy, chemo and radiation approx 3 years ago. Currently in remission Acute renal insufficiency, likely secondary to mild dehydration, receiving IVFs, continue to monitor. Supervisory-Addendum Brief Supervisory Addendum Participated in pt care: history, MDM, physical Personally performed: exam, history, MDM Care discussed with: MAXIME Results interpretation: Verified all documentation Notes: Patient was seen and evaluated with Lynn, examination performed, management plan was discussed, agree with the current scribed note, I made few changes to the note using Italic font Patient was seen at bedside, sitting comfortably and feeling better No new complain Reporting improvement in his breathing Continue on current treatment and continue to monitor LYNN FORDE May 19, 2022 08:46 MIRANDA WATSON MD May 19, 2022 11:49
[2022-05-19] MEDS: DOXYCYCLINE INJECTION 100 MG in NS (IVPB) 100 ML IV SCH ×2 (08:55→19:59)
[2022-05-19] MEDS: TAMSULOSIN 0.4 MG (FLOMAX) CAP PO SCH (08:57)
[2022-05-19] MEDS: DOCUSATE SODIUM 100 MG (COLACE) CAP PO SCH ×2 (08:57→19:58)
[2022-05-19] MEDS: meTOprolol SUCCINATE 100 MG (TOPROL XL) TAB PO SCH (08:57)
[2022-05-19] MEDS: LACTOBACILLUS ACIDOPHILUS (PROBIOTIC) CAPSULE PO SCH ×3 (08:57→17:55)
[2022-05-19] MEDS: lisINopril 10 MG (PRINIVIL) TABLET PO SCH (08:57)
[2022-05-19 11:29] VITALS: BP 140/66
--- NOTE | 2022-05-19 11:35 | Physical Therapy Daily Note ---
PT Daily Note-Current Subjective Patient agrees to PT. Patient was up to restroom with nursing without O2 in place. Patient declined to ambulate with O2. Pain Section J - Health Conditions 1. Rarely or not at all 2. Occasionally 3. Frequently 4. Almost constantly 8. Unable to answer Pain Effect on Sleep: 1 Pain Interference with Therapy: 1 Pain Interference w/Day-to-Day: 1 Mental Status Patient Orientation: Normal For Age Attachments: Oxygen (1L) Transfers SCALE: Activities may be completed with or without assistive devices. 9-Fkekypnpqx-ixnktyd completes the activity by him/herself with no assistance from a helper. 5-Set-up or Clean-up Assistance-helper sets up or cleans up; patient completes activity. [place] assists only prior to or following the activity. 4-Supervision or Touching Assistance-helper provides verbal cues and/or touching/steadying and/or contact guard assistance as patient completes activity. Assistance may be provided throughout the activity or intermittently. 3-Partial/Moderate Assistance-helper does LESS THAN HALF the effort. [place] lifts, holds or supports trunk or limbs, but provides less than half the effort. 2-Substantial/Maximal Assistance-helper does MORE THAN HALF the effort. [place] lifts or holds trunk or limbs and provides more than half the effort. 8-Ngjlhhoag-bhpayd does ALL the effort. Patient does none of the effort to complete the activity. Or, the assistance of 2 or more helpers is required for the patient to complete the activity. If activity was not attempted, code reason: 7-Patient Refused. 9-Not Applicable-not attempted and the patient did not perform the activity before the current illness, exacerbation or injury. 10-Not Attempted due to Environmental Limitations-(lack of equipment, weather restraints, etc.). 88-Not Attempted due to Medical Conditions or Safety Concerns. Sit to Stand (QC): 6 Chair/Gkn-up-Xjdyc Xfer(QC): 6 Toilet Transfer (QC): 6 Gait Training Distance: 500' Walk 10 feet (QC): 6 Walk 50 ft with 2 Turns(QC): 6 Walk 150 ft (QC): 6 Gait Assistive Device: None safe and functional with no deviation Assessment Patient's SAO2 decreased to 80% with recovery on 1L to 93% within 1 min. Patient did not appear distressed or SOA. RN notified. Patient is up in re cliner with O2 1L in place. PT will see patient x 1 more session to determine POC. PT Care Home Goals Mixing Picker Tender Goals PT Care Home Goals Time Frame: May 25, 2022 Roll Left & Right (QC): 6 Sit to Lying (QC): 6 Lying-Sitting on Side/Bed(QC): 6 Sit to Stand (QC): 6 Chair/Iiy-eo-Xcxcm Xfer(QC): 6 Walk 10 feet (QC): 6 Walk 50ft with 2 Turns (QC): 6 Walk 150 ft (QC): 6 PT Plan Treatment/Plan Treatment Plan: Continue Plan of Care Treatment Plan: Bed Mobility, Education, Functional Activity Jose, Functional Strength, Gait, Safety, Therapeutic Exercise, Transfers Treatment Duration: May 25, 2022 Frequency: 6 times per week Estimated Hrs Per Day: .25 hour per day Patient and/or Family Agrees t: Yes Time Time In: 1051 Time Out: 1031 DATE: May 19, 2022 Total Billed Treatment Time: 16 Total Billed Treatment 1 visit FA 16 min CARLINE RIVERO PT May 19, 2022 11:35
[2022-05-19] MEDS ORDERED: LACTULOSE SYRUP 10GM/15ML (ENULOSE) 30ML UDC PO NR (12:00)
[2022-05-19] MEDS ORDERED: SENNA W/DOCUSATE (SENOKOT S) TABLET PO NR (12:00)
--- NOTE | 2022-05-19 15:01 | Progress Note ---
DAVIS MATHIS I 05/19/22 1501: Subjective Date Seen by a Provider: May 19, 2022 Time Seen by a Provider: 10:23 Subjective/Events-last exam Mr Prieto is a 81 YoM PMH of Lung cancer s/p chemo and lobectomy, COPD, CHF and HTN, admitted for pneumonia. Overnight he states he only got two hours of sleep. He has an appetite and has been eating well, but has not had a BM. He said he would take miralax tomorrow if he does not have one today. He is passing gas. He says his productive cough is about the same, and denies fevers and sweats. Review of Systems General: No Chills, No Night Sweats; Appetite HEENT: No Head Aches, No Visual Changes, No Eye Pain, No Ear Pain, No Dysphasia, No Sinus Congestion, No Post Nasal Drip, No Sore Throat Pulmonary: Cough Cardiovascular: Chest Pain Gastrointestinal: No: Nausea, Vomiting, Abdominal Pain, Diarrhea, Constipation, Melena, Hematochezia Genitourinary: No Dysuria, No Frequency, No Incontinence, No Hematuria, No Retention Musculoskeletal: No: other, neck pain, shoulder pain, arm pain, back pain, hand pain, leg pain, foot pain Neurological: No: Weakness, Numbness, Incoordination, Change in speech, Confusion, Seizures, Other Focused Exam Lactate Level 05/17/22 18:56: Lactic Acid Level 2.45*H 05/17/22 22:00: Lactic Acid Level 1.63 Objective Exam Last Set of Vital Signs Vital Signs Date Time Temp Pulse Resp B/P (MAP) Pulse Ox O2 Delivery O2 Flow Rate FiO2 05/19/22 13:00 73 05/19/22 11:29 36.5 18 140/66 (90) 90 Nasal Cannula 1.00 05/17/22 21:55 32 Capillary Refill : Less Than 3 Seconds I&O Intake and Output 05/19/22 00:00 Intake Total 2440 ml Output Total 1900 ml Balance 540 ml Intake Oral 1390 ml IV Total 1050 ml Output Urine Total 1900 ml # Voids 1 General: Alert, Oriented X3, Cooperative, No Acute Distress HEENT: Atraumatic, PERRLA Lungs: Other (Espiratory wheeze present on left middle lung field. ) Heart: Regular Rate, Normal S1, Normal S2, No Murmurs, Other (Difficult to hear heart sounds) Abdomen: Normal Bowel Sounds, Soft Extremities: No Clubbing, No Cyanosis, No Edema, Normal Pulses, No Tenderness/Swelling Results Lab Laboratory Tests 05/19/22 05:23: White Blood Count 17.9H, Red Blood Count 3.51L, Hemoglobin 11.5L, Hematocrit 34L , Mean Corpuscular Volume 97, Mean Corpuscular Hemoglobin 33, Mean Corpuscular Hemoglobin Concent 34, Red Cell Distribution Width 16.5H, Platelet Count 170, Mean Platelet Volume 10.5, Immature Granulocyte % (Auto) 0, Neutrophils (%) (Auto) 93H, Lymphocytes (%) (Auto) 4L, Monocytes (%) (Auto) 2, Eosinophils (%) (Auto) 0, Basophils (%) (Auto) 0, Neutrophils # (Auto) 16.7H, Lymphocytes # (Auto) 0.7L, Monocytes # (Auto) 0.4, Eosinophils # (Auto) 0.0, Basophils # (Auto ) 0.1, Immature Granulocyte # (Auto) 0.0, Sodium Level 139, Potassium Level 3.8, Chloride Level 109H, Carbon Dioxide Level 20L, Anion Gap 10, Blood Urea Nitrogen 32H, Creatinine 1.11, Estimat Glomerular Filtration Rate 67, BUN/Creatinine Ratio 29, Glucose Level 168H, Calcium Level 8.4L, Corrected Calcium 9.2, Magnesium Level 2.2, Total Bilirubin 0.4, Aspartate Amino Transf (AST/SGOT) 36H, Alanine Aminotransferase (ALT/SGPT) 63H, Alkaline Phosphatase 83, Total Protein 6.4, Albumin 3.0L Microbiology 05/17/22 Gram Stain, Resulted Pending 05/17/22 Sputum Culture - Preliminary, Resulted Usual upper respiratory eliezer 05/17/22 Urine Culture - Final, Complete NO GROWTH 05/17/22 Blood Culture - Preliminary, Resulted No growth Assessment/Plan Assessment/Plan Assess & Plan/Chief Complaint Mr Prieto is a 81 YoM PMH of Lung cancer s/p chemo and lobectomy, COPD, CHF and HTN, admitted for pneumonia. Today is HD#3, WBC trending down Consider discharge tomorrow depending on how his response is for steroid removal Diagnosis/Problems Diagnosis/Problems (1) Hypoxia Status: Acute Assessment & Plan: - Rarely uses Oxygen concentrator at home as baseline - O2 supplementation, wean as tolerated (2) Hypotension Status: Acute Assessment & Plan: - Borderline low BP - Continue to monitor with fluid resuscitation therapy. Qualifiers: Qualified Codes: I95.9 - Hypotension, unspecified (3) CAP (community acquired pneumonia) Status: Acute Assessment & Plan: - WBC 20.1 -> 17.5 - Continue cefepime and doxy for sepsis. - D/C Vanc - Micro: no growth on blood, and urine cultures. Sputum culture: normal eliezer - Continue supplemental O2, wean as tolerated, does use concentrator at baseline for emergencies - incentive spirometry - Antitussives as needed - Steroids discontinued for concern of delirium Qualifiers: Qualified Codes: J18.9 - Pneumonia, unspecified organism (4) Sepsis Status: Acute Assessment & Plan: - Lactate 1.63 in ED - Cr. 1.27 - WBC 16.5 on admission -> 20.1 - Source: CXR showing infiltrate in L lung - Started on Cefepime and vanco, will follow sensitivities - Blood cultures pending - Improving clinically, consider transfer to floor - Continue monitoring IVF Anemia (11.7 ) likely due to hemodilution - continue to monitor. Qualifiers: (5) Acute kidney injury superimposed on chronic kidney disease Status: Acute Assessment & Plan: - Improving, was likely secondary to mild dehydration continue to monitor with fluid resuscitation (6) Mixed hyperlipidemia Assessment & Plan: - Continue to monitor Clinical Quality Measures Admission Status Admission Dx Kemar Prieto is an 81 YoM with PMH of lung cancer, CAD, CHF, COPD, AAA s/p stent graft, HTN, and HLP admitted to ICU for sepsis and pneumonia. STEPHANIE HENNESSY DO 05/20/22 0452: Subjective Subjective/Events-last exam Patient showing signs of delirium from steroids with paranoia Will DC steroids Review of Systems General: Fatigue Neurological: Confusion Objective Exam General: Alert, Oriented X3, Cooperative, No Acute Distress Lungs: Clear to Auscultation, Normal Air Movement Heart: Regular Rate, Normal S1, Normal S2, No Murmurs Psych/Mental Status: Mental Status NL, Mood NL, Other (paranoia) Assessment/Plan Assessment/Plan Assess & Plan/Chief Complaint DC steroids Monitor delirium Supervisory-Addendum Brief Verification & Attestation Participated in pt care: history, MDM, physical Personally performed: exam, history, MDM, supervision of care Care discussed with: Medical Student Procedures: n/a Results interpretation: Verified all documentation Verification and Attestation of Medical Student E/M Service A medical student performed and documented this service in my presence. I reviewed and verified all information documented by the medical student and made modifications to such information, when appropriate. I personally performed the physical exam and medical decision making. Stephanie Hennessy, May 20, 2022,04:51 DAVIS MATHIS I May 19, 2022 15:01 STEPHANIE HENNESSY DO May 20, 2022 04:52
[2022-05-19 16:02] VITALS: BP 133/87
[2022-05-19] MEDS ORDERED: TROUGH ORDER-PHARMACY XX ONE (19:00)
[2022-05-19 19:14] VITALS: BP 151/69
[2022-05-19] MEDS: ENOXAPARIN 40 MG/0.4 ML (LOVENOX) SYR SC SCH (19:58)
[2022-05-19] MEDS ORDERED: methylPREDNISolone 40 MG/ML (Solu-MEDROL) VIAL IV SCH (21:00)
[2022-05-20 00:26] VITALS: BP 112/56
[2022-05-20] MEDS: RT-ALBUTEROL/IPRATROPIUM 3 ML (DUONEB) VIAL INH SCH ×2 (03:23→09:16)
[2022-05-20 04:13] VITALS: BP 144/78
[2022-05-20 05:25] LABS: BASOPHILS # (AUTO) 0.1 10^3/uL (0.0-0.1); BASOPHILS % (AUTO) 1 % (0-10); EOSINOPHILS % (AUTO) 0 % (0-10); HEMATOCRIT 34 % (40-54); HEMOGLOBIN 11.3 g/dL (13.3-17.7); LYMPHOCYTES # (AUTO) 1.5 10^3/uL (1.0-4.0); LYMPHOCYTES % (AUTO) 8 % (12-44); MEAN CORPUSCULAR HEMOGLOBIN 33 pg (25-34); MEAN CORPUSCULAR HGB CONC 33 g/dL (32-36); MEAN CORPUSCULAR VOLUME 98 fL (80-99); MEAN PLATELET VOLUME 10.5 fL (9.0-12.2); MONOCYTES % (AUTO) 5 % (0-12); NEUTROPHILS # (AUTO) 17.1 10^3/uL (1.8-7.8); NEUTROPHILS % (AUTO) 87 % (42-75); PLATELET COUNT 171 10^3/uL (130-400); WHITE BLOOD COUNT 19.7 10^3/uL (4.3-11.0)
[2022-05-20] MEDS: CEFEPIME INJECTION 1,000 MG in NS (IVPB) 50 ML IV SCH ×2 (05:36→11:37)
[2022-05-20 05:55] LABS: ALBUMIN 2.8 GM/DL (3.2-4.5); BILIRUBIN,TOTAL 0.4 MG/DL (0.1-1.0); CALCIUM 8.4 MG/DL (8.5-10.1); CREATININE SERUM 0.88 MG/DL (0.60-1.30); MAGNESIUM 2.1 MG/DL (1.6-2.4); POTASSIUM 3.9 MMOL/L (3.6-5.0); TOTAL PROTEIN 6.1 GM/DL (6.4-8.2)
[2022-05-20 07:48] VITALS: BP 149/67
[2022-05-20] MEDS: DOXYCYCLINE INJECTION 100 MG in NS (IVPB) 100 ML IV SCH (09:02)
[2022-05-20] MEDS: LACTOBACILLUS ACIDOPHILUS (PROBIOTIC) CAPSULE PO SCH ×2 (09:03→13:44)
[2022-05-20] MEDS: lisINopril 10 MG (PRINIVIL) TABLET PO SCH (09:03)
[2022-05-20] MEDS: DOCUSATE SODIUM 100 MG (COLACE) CAP PO SCH (09:03)
[2022-05-20] MEDS: meTOprolol SUCCINATE 100 MG (TOPROL XL) TAB PO SCH (09:03)
[2022-05-20] MEDS: TAMSULOSIN 0.4 MG (FLOMAX) CAP PO SCH (09:03)
--- NOTE | 2022-05-20 09:12 | Occupational Ther Daily Note ---
OT Current Status-Daily Note Subjective Up in chair and reports someone is bringing clothing, plan to DC home today Mental Status/Objective Patient Orientation: Person, Place, Time, Situation ADL-Treatment Therapy Code Descriptions/Definitions Functional [place] Measure: 0=Not Assessed/NA 4=Minimal Assistance 1=Total Assistance 5=Supervision or Setup 2=Maximal Assistance 6=Modified [place] 3=Moderate Assistance 7=Complete IndependenceSCALE: Activities may be completed with or without assistive devices. 5-Pjkmbpwgdx-gslqsqp completes the activity by him/herself with no assistance from a helper. 5-Set-up or Clean-up Assistance-helper sets up or cleans up; patient completes activity. [place] assists only prior to or following the activity. 4-Supervision or Touching Assistance-helper provides verbal cues and/or touching/steadying and/or contact guard assistance as patient completes activity. Assistance may be provided throughout the activity or intermittently. 3-Partial/Moderate Assistance-helper does LESS THAN HALF the effort. [place] lifts, holds or supports trunk or limbs, but provides less than half the effort. 2-Substantial/Maximal Assistance-helper does MORE THAN HALF the effort. [place] lifts or holds trunk or limbs and provides more than half the effort. 1-Wppzmcoqg-zdsrtn does ALL the effort. Patient does none of the effort to complete the activity. Or, the assistance of 2 or more helpers is required for the patient to complete the activity. If activity was not attempted, code reason: 7-Patient Refused. 9-Not Applicable-not attempted and the patient did not perform the activity before the current illness, exacerbation or injury. 10-Not Attempted due to Environmental Limitations-(lack of equipment, weather restraints, etc.). 88-Not Attempted due to Medical Conditions or Safety Concerns. Eating (QC): 6 Oral Hygiene (QC): 6 Upper Body Dressing (QC): 6 Lower Body Dressing (QC): 6 On/Off Footwear: 6 Other Treatment In room FWW placed at door, OT placed in reach w/ pt sitting on recliner at end of session, call [facility] [place] reach and tray table in reach Education OT Patient Education: Energy conservation, Progress toward Goal/Update tx plan, Rehab process Teaching Recipient: Patient Teaching Methods: Demonstration, Discussion Response to Teaching: Verbalize Understanding, Return Demonstration OT [facility] Goals [employer] Goals Time Frame: May 27, 2022 Eating (QC): 6 Oral Hygiene (QC): 6 Toileting Hygiene (QC): 6 Shower/Bathe Self (QC): 6 Upper Body Dressing (QC): 6 Lower Body Dressing (QC): 6 On/Off Footwear (QC): 6 Additional Goals: 1-Demonstrate ADL Tasks, 2-Verbalize Understanding, 3- ImproveStrength/Jose 1=Demonstrate adherence to instructed precautions during ADL tasks. 2=Patient will verbalize/demonstrate understanding of assistive devices/modifi cations for ADL. 3=Patient will improve strength/tolerance for activity to enable patient to perform ADL's. OT Education/Plan Problem List/Assessment Pt would benefit from short term skilled OT Services in order to increase safety and independence with ADLs and functional mobility in order to maximize LOF for safe return home. Discharge Recommendations Plan/Recommendations: Continue POC Equpiment Recommendations-D/C: None Treatment Plan/Plan of Care Treatment,Training & Education: Yes Patient would benefit from OT for education, treatment and training to promote independence in ADL's, mobility, safety and/or upper extremity function for ADL's. Plan of Care: ADL Retraining, Functional Mobility, UE Funct Exercise/Act Treatment Duration: May 27, 2022 Frequency: 3 times per week (3-5 times per week) Estimated Hrs Per Day: .25 hour per day Agreement: Yes Rehab Potential: Fair Time Start Time: 08:44 Stop Time: 09:00 DATE: May 20, 2022 Total Time Billed (hr/min): 16 Billed Treatment Time 1, ADL 16 minutes YINA ALMEIDA OT May 20, 2022 09:12
--- NOTE | 2022-05-20 11:09 | Physical Therapy Progress Note ---
Therapy Progress Note Patient up independently in room and hallway. PT to dismiss patient from services at this time. RN confirms and agrees. CARLINE RIVERO PT May 20, 2022 11:09
[2022-05-20 11:10] VITALS: BP 128/61
[2022-05-20] MEDS ORDERED: DOXY100T2 PO (12:20)
--- NOTE | 2022-05-20 12:22 | Discharge Summary ---
Diagnosis/Chief Complaint Date of Admission May 17, 2022 at 21:35 Date of Discharge Discharge Date: May 20, 2022 Discharge Diagnosis (1) Hypoxia Status: Acute Assessment & Plan: - Rarely uses Oxygen concentrator at home as baseline - O2 supplementation, wean as tolerated (2) Hypotension Status: Acute Assessment & Plan: - Borderline low BP - Continue to monitor with fluid resuscitation therapy. Qualifiers: Qualified Codes: I95.9 - Hypotension, unspecified (3) CAP (community acquired pneumonia) Status: Acute Assessment & Plan: - WBC 20.1 -> 17.5 - Continue cefepime and doxy for sepsis. - D/C Vanc - Micro: no growth on blood, and urine cultures. Sputum culture: normal eliezer - Continue supplemental O2, wean as tolerated, does use concentrator at baseline for emergencies - incentive spirometry - Antitussives as needed - Steroids discontinued for concern of delirium Qualifiers: Qualified Codes: J18.9 - Pneumonia, unspecified organism (4) Sepsis Status: Acute Assessment & Plan: - Lactate 1.63 in ED - Cr. 1.27 - WBC 16.5 on admission -> 20.1 - Source: CXR showing infiltrate in L lung - Started on Cefepime and vanco, will follow sensitivities - Blood cultures pending - Improving clinically, consider transfer to floor - Continue monitoring IVF Reason Hospital Visit Discharge Summary Discharge Physical Examination Allergies: Coded Allergies: Penicillins (Verified Allergy, Unknown, 05/17/22) levofloxacin (Verified Allergy, Unknown, 05/17/22) Vitals & I&Os Vital Signs Date Time Temp Pulse Resp B/P (MAP) Pulse Ox O2 Delivery O2 Flow Rate FiO2 05/20/22 14:19 05/20/22 12:59 75 05/20/22 11:10 36.2 18 91 Room Air 05/20/22 09:24 0.00 05/17/22 21:55 32 General Appearance: Alert, Oriented X3, Cooperative Respiratory: Clear to Auscultation Cardiovascular: Regular Rate Psych/Mental Status: Mental Status NL Hospital Course Was the Problem List Reviewed?: Yes Kemar Prieto is an 81 year old male with a pertinent medical history of lung cancer status post lobectomy and chemotherapy currently in remission, COPD, CHF, AAA with stent, and HTN who was admitted to the ICU with a diagnosis of shortness of breath, generalized weakness, pneumonia, and sepsis. Due to his cardiac history, cardiology followed the course of his hospital stay. He was stabilized with Albuterol/Ipratropium, IV steroids, vancomycin and cefepime, and fluid resuscitation, and subsequently transferred to the floor on hospital day two. Despite his blood, sputum, and urine cultures isolating no pathogenic organisms, his WBC remained high and required supplemental oxygen. Antibiotics were narrowed to cefepime, and doxycycline, and his WBC trended down. His O2 requirement was further reduced to use after walking the halls on hospital, which was close to his baseline. DAVIS MATHIS I Labs (last 24 hrs) Laboratory Tests 05/17/22 18:50: Influenza Type A (RT-PCR) Not Detected, Influenza Type B (RT-PCR) Not Detected, SARS-CoV-2 RNA (RT-PCR) Not Detected 05/17/22 18:56: White Blood Count 16.5H, Red Blood Count 3.78L, Hemoglobin 12.3L, Hematocrit 36L , Mean Corpuscular Volume 94, Mean Corpuscular Hemoglobin 33, Mean Corpuscular Hemoglobin Concent 35, Red Cell Distribution Width 16.4H, Platelet Count 170, Mean Platelet Volume 10.7, Immature Granulocyte % (Auto) 3, Neutrophils (%) (Auto) 91H, Lymphocytes (%) (Auto) 3L, Monocytes (%) (Auto) 2, Eosinophils (%) (Auto) 0, Basophils (%) (Auto) 1, Neutrophils # (Auto) 15.0H, Lymphocytes # (Auto) 0.4L, Monocytes # (Auto) 0.4, Eosinophils # (Auto) 0.0, Basophils # (Auto) 0.1, Immature Granulocyte # (Auto) 0.6H, Neutrophils % (Manual) 52, Lymphocytes % (Manual) 3, Monocytes % (Manual) 2, Eosinophils % (Manual) 1, Basophils % (Manual) 0, Metamyelocytes % 1, Band Neutrophils 41, Prothrombin Time 13.8, INR Comment 1.0, Activated Partial Thromboplast Time 29, Sodium Level 135, Potassium Level 3.3L, Chloride Level 100, Carbon Dioxide Level 21, Anion Gap 14, Blood Urea Nitrogen 50H, Creatinine 1.54H, Estimat Glomerular Filtration Rate 45, BUN/Creatinine Ratio 32, Glucose Level 115H, Lactic Acid Level 2.45*H, Calcium Level 8.7, Corrected Calcium 9.3, Total Bilirubin 1.1H, Aspartate Amino Transf (AST/SGOT) 96H, Alanine Aminotransferase (ALT/SGPT) 76H, Alkaline Phosphatase 107, Troponin I < 0.30, Total Protein 6.9, Albumin 3.2 05/17/22 19:24: Urine Color YELLOW, Urine Clarity CLEAR, Urine pH 5.5, Urine Specific [place] 1.015L, Urine Protein NEGATIVE, Urine Glucose (UA) NEGATIVE, Urine Ketones NEGATIVE, Urine Nitrite NEGATIVE, Urine Bilirubin NEGATIVE, Urine Urobilinogen 1.0, Urine Leukocyte Esterase NEGATIVE, Urine RBC (Auto) TRACE-IH, Urine RBC RARE, Urine WBC RARE, Urine Squamous Epithelial Cells 0-2, Urine Crystals NONE, Urine Bacteria NEGATIVE, Urine Casts PRESENT, Urine Hyaline Casts RARE, Urine Mucus NEGATIVE, Urine Culture Indicated NO 05/17/22 22:00: Lactic Acid Level 1.63 05/18/22 04:10: White Blood Count 20.1H, Red Blood Count 3.58L, Hemoglobin 11.7L, Hematocrit 35L , Mean Corpuscular Volume 96, Mean Corpuscular Hemoglobin 33, Mean Corpuscular Hemoglobin Concent 34, Red Cell Distribution Width 16.5H, Platelet Count 149, Mean Platelet Volume 10.4, Immature Granulocyte % (Auto) 4, Neutrophils (%) (Auto) 91H, Lymphocytes (%) (Auto) 3L, Monocytes (%) (Auto) 2, Eosinophils (%) (Auto) 0, Basophils (%) (Auto) 1, Neutrophils # (Auto) 18.2H, Lymphocytes # (Auto) 0.6L, Monocytes # (Auto) 0.4, Eosinophils # (Auto) 0.0, Basophils # (Auto) 0.1, Immature Granulocyte # (Auto) 0.9H, Blood Gas Puncture Site RIGHT RADIAL, Blood Gas Patient Temperature 36.2, Arterial Blood pH 7.38, Arterial Blood Partial Pressure CO2 36, Arterial Blood Partial Pressure O2 90, Arterial Blood HCO3 21L, Arterial Blood Total CO2 22.2, Arterial Blood Oxygen Saturation 98, Arterial Blood Base Excess -3.4L, Price Test YES-POS, Blood Gas Ventilator Setting NO, Blood Gas Inspired Oxygen 3L, Sodium Level 138, Potassium Level 3.6, Chloride Level 108H, Carbon Dioxide Level 19L, Anion Gap 11, Blood Urea Nitrogen 43H, Creatinine 1.27, Estimat Glomerular Filtration Rate 57, BUN/Creatinine Ratio 34, Glucose Level 152H, Calcium Level 8.1L, Corrected Calcium 8.9, Phosphorus Level 3.4, Magnesium Level 2.4, Total Bilirubin 1.1H, Aspartate Amino Transf (AST/SGOT) 93H, Alanine Aminotransferase (ALT/SGPT) 90H, Alkaline Phosphatase 89, B-Type Natriuretic Peptide 82.5, Total Protein 6.4, Albumin 3.0L , Triglycerides Level 67, Cholesterol Level 104, LDL Cholesterol Direct 59, VLDL Cholesterol 13, HDL Cholesterol 26L, Thyroid Stimulating Hormone (TSH) 0.70, Sme ar Scan YES 05/19/22 05:23: White Blood Count 17.9H, Red Blood Count 3.51L, Hemoglobin 11.5L, Hematocrit 34L , Mean Corpuscular Volume 97, Mean Corpuscular Hemoglobin 33, Mean Corpuscular Hemoglobin Concent 34, Red Cell Distribution Width 16.5H, Platelet Count 170, Mean Platelet Volume 10.5, Immature Granulocyte % (Auto) 0, Neutrophils (%) (Auto) 93H, Lymphocytes (%) (Auto) 4L, Monocytes (%) (Auto) 2, Eosinophils (%) (Auto) 0, Basophils (%) (Auto) 0, Neutrophils # (Auto) 16.7H, Lymphocytes # (Auto) 0.7L, Monocytes # (Auto) 0.4, Eosinophils # (Auto) 0.0, Basophils # (Auto) 0.1, Immature Granulocyte # (Auto) 0.0, Sodium Level 139, Potassium Level 3.8, Chloride Level 109H, Carbon Dioxide Level 20L, Anion Gap 10, Blood Urea Nitrogen 32H, Creatinine 1.11, Estimat Glomerular Filtration Rate 67, BUN/Creatinine Ratio 29, Glucose Level 168H, Calcium Level 8.4L, Corrected Calcium 9.2, Magnesium Level 2.2, Total Bilirubin 0.4, Aspartate Amino Transf (AST/SGOT) 36H, Alanine Aminotransferase (ALT/SGPT) 63H, Alkaline Phosphatase 83, Total Protein 6.4, Albumin 3.0L 05/20/22 05:12: White Blood Count 19.7H, Red Blood Count 3.45L, Hemoglobin 11.3L, Hematocrit 34L , Mean Corpuscular Volume 98, Mean Corpuscular Hemoglobin 33, Mean Corpuscular Hemoglobin Concent 33, Red Cell Distribution Width 16.6H, Platelet Count 171, Mean Platelet Volume 10.5, Immature Granulocyte % (Auto) 0, Neutrophils (%) (Auto) 87H, Lymphocytes (%) (Auto) 8L, Monocytes (%) (Auto) 5, Eosinophils (%) (Auto) 0, Basophils (%) (Auto) 1, Neutrophils # (Auto) 17.1H, Lymphocytes # (Auto) 1.5, Monocytes # (Auto) 1.0, Eosinophils # (Auto) 0.0, Basophils # (Auto) 0.1, Immature Granulocyte # (Auto) 0.0, Sodium Level 137, Potassium Level 3.9, Chloride Level 109H, Carbon Dioxide Level 22, Anion Gap 6, Blood Urea Nitrogen 29H, Creatinine 0.88, Estimat Glomerular Filtration Rate 87, BUN/Creatinine Ratio 33, Glucose Level 101, Calcium Level 8.4L, Corrected Calcium 9.4, Magnesium Level 2.1, Total Bilirubin 0.4, Aspartate Amino Transf (AST/SGOT) 33, Alanine Aminotransferase (ALT/SGPT) 62H, Alkaline Phosphatase 68, Total Protein 6.1L, Albumin 2.8L Microbiology 05/17/22 Gram Stain - Final, Complete 05/17/22 Sputum Culture - Final, Complete Usual upper respiratory eliezer 05/17/22 Urine Culture - Final, Complete NO GROWTH 05/17/22 Blood Culture - Preliminary, Resulted No growth Pending Labs Microbiology Date/Time Source Procedure Growth Status 05/17/22 23:22 Sputum Expectorated Gram Stain - Final Complete 05/17/22 23:22 Sputum Culture - Final Usual upper respiratory eliezer Complete 05/17/22 21:40 Nasal MRSA Screen - Final MRSA not isolated Complete 05/17/22 19:24 Urine Clean Catch Urine Culture - Final NO GROWTH Complete 05/17/22 19:01 Peripheral Lt Ac Blood Culture - Preliminary No growth Resulted 05/17/22 18:56 Peripheral Lt Ac Blood Culture - Preliminary No growth Resulted Laboratory Tests 05/17/22 18:50: Influenza Type A (RT-PCR) Not Detected, Influenza Type B (RT-PCR) Not Detected, SARS-CoV-2 RNA (RT-PCR) Not Detected 05/17/22 18:56: White Blood Count 16.5, Red Blood Count 3.78, Hemoglobin 12.3, Hematocrit 36, Mean Corpuscular Volume 94, Mean Corpuscular Hemoglobin 33, Mean Corpuscular Hemoglobin Concent 35, Red Cell Distribution Width 16.4, Platelet Count 170, Mean Platelet Volume 10.7, Immature Granulocyte % (Auto) 3, Neutrophils (%) (Auto) 91, Lymphocytes (%) (Auto) 3, Monocytes (%) (Auto) 2, Eosinophils (%) (Auto) 0, Basophils (%) (Auto) 1, Neutrophils # (Auto) 15.0, Lymphocytes # (Auto) 0.4, Monocytes # (Auto) 0.4, Eosinophils # (Auto) 0.0, Basophils # (Auto) 0.1, Immature Granulocyte # (Auto) 0.6, Neutrophils % (Manual) 52, Lymphocytes % (Manual) 3, Monocytes % (Manual) 2, Eosinophils % (Manual) 1, Basophils % (Manual) 0, Metamyelocytes % 1, Band Neutrophils 41, Prothrombin Time 13.8, INR Comment 1.0, Activated Partial Thromboplast Time 29, Sodium Level 135, Potassium Level 3.3, Chloride Level 100, Carbon Dioxide Level 21, Anion Gap 14, Blood Urea Nitrogen 50, Creatinine 1.54, Estimat Glomerular Filtration Rate 45, BUN/Creatinine Ratio 32, Glucose Level 115, Lactic Acid Level 2.45, Calcium Level 8.7, Corrected Calcium 9.3, Total Bilirubin 1.1, Aspartate Amino Transf (AST/SGOT) 96, Alanine Aminotransferase (ALT/SGPT) 76, Alkaline Phosphatase 107, Troponin I < 0.30, Total Protein 6.9, Albumin 3.2 05/17/22 19:24: Urine Color YELLOW, Urine Clarity CLEAR, Urine pH 5.5, Urine Specific [place] 1.015, Urine Protein NEGATIVE, Urine Glucose (UA) NEGATIVE, Urine Ketones NEGATIVE, Urine Nitrite NEGATIVE, Urine Bilirubin NEGATIVE, Urine Urobilinogen 1.0, Urine Leukocyte Esterase NEGATIVE, Urine RBC (Auto) TRACE-I, Urine RBC RARE, Urine WBC RARE, Urine Squamous Epithelial Cells 0-2, Urine Crystals NONE, Urine Bacteria NEGATIVE, Urine Casts PRESENT, Urine Hyaline Casts RARE, Urine Mucus NEGATIVE, Urine Culture Indicated NO 05/17/22 22:00: Lactic Acid Level 1.63 05/18/22 04:10: White Blood Count 20.1, Red Blood Count 3.58, Hemoglobin 11.7, Hematocrit 35, Mean Corpuscular Volume 96, Mean Corpuscular Hemoglobin 33, Mean Corpuscular Hemoglobin Concent 34, Red Cell Distribution Width 16.5, Platelet Count 149, Mean Platelet Volume 10.4, Immature Granulocyte % (Auto) 4, Neutrophils (%) (Auto) 91, Lymphocytes (%) (Auto) 3, Monocytes (%) (Auto) 2, Eosinophils (%) (Auto) 0, Basophils (%) (Auto) 1, Neutrophils # (Auto) 18.2, Lymphocytes # (Auto) 0.6, Monocytes # (Auto) 0.4, Eosinophils # (Auto) 0.0, Basophils # (Auto) 0.1, Immature Granulocyte # (Auto) 0.9, Blood Gas Puncture Site RIGHT RADIAL, Blood Gas Patient Temperature 36.2, Arterial Blood pH 7.38, Arterial Blood Partial Pressure CO2 36, Arterial Blood Partial Pressure O2 90, Arterial Blood HCO3 21, Arterial Blood Total CO2 22.2, Arterial Blood Oxygen Saturation 98, Arterial Blood Base Excess -3.4, Price Test YES-POS, Blood Gas Ventilator Setting NO, Blood Gas Inspired Oxygen 3L, Sodium Level 138, Potassium Level 3.6, Chloride Level 108, Carbon Dioxide Level 19, Anion Gap 11, Blood Urea Nitrogen 43, Creatinine 1.27, Estimat Glomerular Filtration Rate 57, BUN/Creatinine Ratio 34, Glucose Level 152, Calcium Level 8.1, Corrected Calcium 8.9, Phosphorus Level 3.4, Magnesium Level 2.4, Total Bilirubin 1.1, Aspartate Amino Transf (AST/SGOT) 93, Alanine Aminotransferase (ALT/SGPT) 90, Alkaline Phosphatase 89, B-Type Natriuretic Peptide 82.5, Total Protein 6.4, Albumin 3.0, Triglycerides Level 67, Cholesterol Level 104, LDL Cholesterol Direct 59, VLDL Cholesterol 13, HDL Cholesterol 26, Thyroid Stimulating Hormone (TSH) 0.70, Smear Scan YES 05/19/22 05:23: White Blood Count 17.9, Red Blood Count 3.51, Hemoglobin 11.5, Hematocrit 34, Mean Corpuscular Volume 97, Mean Corpuscular Hemoglobin 33, Mean Corpuscular Hemoglobin Concent 34, Red Cell Distribution Width 16.5, Platelet Count 170, Mean Platelet Volume 10.5, Immature Granulocyte % (Auto) 0, Neutrophils (%) (Auto) 93, Lymphocytes (%) (Auto) 4, Monocytes (%) (Auto) 2, Eosinophils (%) (Auto) 0, Basophils (%) (Auto) 0, Neutrophils # (Auto) 16.7, Lymphocytes # (Auto) 0.7, Monocytes # (Auto) 0.4, Eosinophils # (Auto) 0.0, Basophils # (Auto) 0.1, Immature Granulocyte # (Auto) 0.0, Sodium Level 139, Potassium Level 3.8, Chloride Level 109, Carbon Dioxide Level 20, Anion Gap 10, Blood Urea Nitrogen 32, Creatinine 1.11, Estimat Glomerular Filtration Rate 67, BUN/Creatinine Ratio 29, Glucose Level 168, Calcium Level 8.4, Corrected Calcium 9.2, Magnesium Level 2.2, Total Bilirubin 0.4, Aspartate Amino Transf (AST/SGOT) 36, Alanine Aminotransferase (ALT/SGPT) 63, Alkaline Phosphatase 83, Total Protein 6.4, Albumin 3.0 05/20/22 05:12: White Blood Count 19.7, Red Blood Count 3.45, Hemoglobin 11.3, Hematocrit 34, Mean Corpuscular Volume 98, Mean Corpuscular Hemoglobin 33, Mean Corpuscular Hemoglobin Concent 33, Red Cell Distribution Width 16.6, Platelet Count 171, Mean Platelet Volume 10.5, Immature Granulocyte % (Auto) 0, Neutrophils (%) (Auto) 87, Lymphocytes (%) (Auto) 8, Monocytes (%) (Auto) 5, Eosinophils (%) (Auto) 0, Basophils (%) (Auto) 1, Neutrophils # (Auto) 17.1, Lymphocytes # (Auto) 1.5, Monocytes # (Auto) 1.0, Eosinophils # (Auto) 0.0, Basophils # (Auto) 0.1, Immature Granulocyte # (Auto) 0.0, Sodium Level 137, Potassium Level 3.9, Chloride Level 109, Carbon Dioxide Level 22, Anion Gap 6, Blood Urea Nitrogen 29, Creatinine 0.88, Estimat Glomerular Filtration Rate 87, BUN/Creatinine Ratio 33, Glucose Level 101, Calcium Level 8.4, Corrected Calcium 9.4, Magnesium Level 2.1, Total Bilirubin 0.4, Aspartate Amino Transf (AST/SGOT) 33, Alanine Aminotransferase (ALT/SGPT) 62, Alkaline Phosphatase 68, Total Protein 6.1, Albumin 2.8 Discharge Home Medications: Active Scripts Active Doxycycline Hyclate 100 Mg Tablet 100 Mg PO BID Reported Tylenol Extra Strength (Acetaminophen) 500 Mg Tablet 1,000 Mg PO Q8H PRN Hydrochlorothiazide 25 Mg Tablet 25 Mg PO DAILY Flomax (Tamsulosin HCl) 0.4 Mg Cap 0.4 Mg PO DAILY Metoprolol Succinate 100 Mg Tab.er.24h 100 Mg PO DAILY Atorvastatin Calcium 40 Mg Tablet 40 Mg PO DAILY Lisinopril 10 Mg Tablet 10 Mg PO DAILY Anoro Ellipta 62.5-25 Mcg INH (Umeclidinium Brm/Vilanterol Tr) 62.5 Mcg-25 Mcg/Actuation Blst.w.dev 1 Puff INH DAILY Instructions to patient/family Please see electronic discharge instructions given to patient. KULDEEP HENNESSY DO May 20, 2022 12:22
--- NOTE | 2022-05-20 12:50 | Progress Note ---
DAVIS MATHIS I 05/20/22 1249: Progress Note Kemar Prieto is an 81 year old male with a pertinent medical history of lung cancer status post lobectomy and chemotherapy currently in remission, COPD, CHF, AAA with stent, and HTN who was admitted to the ICU with a diagnosis of shortness of breath, generalized weakness, pneumonia, and sepsis. Due to his cardiac history, cardiology followed the course of his hospital stay. He was stabilized with Albuterol/Ipratropium, IV steroids, vancomycin and cefepime, and fluid resuscitation, and subsequently transferred to the floor on hospital day two. Despite his blood, sputum, and urine cultures isolating no pathogenic organisms, his WBC remained high and required supplemental oxygen. Antibiotics were narrowed to cefepime, and doxycycline, and his WBC trended down. His O2 requirement was further reduced to use after walking the halls on hospital, which was close to his baseline. STEPHANIE HENNESSY DO 05/20/22 2228: Supervisory-Addendum Brief Verification & Attestation Participated in pt care: history, MDM, physical Personally performed: exam, history, MDM, supervision of care Care discussed with: Medical Student Procedures: n/a Results interpretation: Verified all documentation Verification and Attestation of Medical Student E/M Service A medical student performed and documented this service in my presence. I reviewed and verified all information documented by the medical student and made modifications to such information, when appropriate. I personally performed the physical exam and medical decision making. Stephanie Hennessy May 20, 2022,22:28 DAVIS MATHIS I May 20, 2022 12:49 STEPHANIE HENNESSY DO May 20, 2022 22:28
[2022-05-20] MEDS ORDERED: DOXYCYCLINE 100 MG (VIBRAMYCIN) TABLET PO SCH (21:00)
== END 2022-05-20 14:22 | disposition home or self-care (01) | DRG 871 ==
LOC: ER FS 18:41 → ICU 21:35 → 4TH 05-18 18:40
PROVIDERS: ADMIT Internal Medicine; ATTEND Internal Medicine
DX: A41.9 Sepsis, unspecified organism (principal); J18.9 Pneumonia, unspecified organism; N17.9 Acute kidney failure, unspecified; J44.1 Chronic obstructive pulmonary disease with (acute) exacerbation; J44.0 Chronic obstructive pulmonary disease with (acute) lower respiratory infection; R09.02 Hypoxemia; Z85.118 Personal history of other malignant neoplasm of bronchus and lung; Z92.21 Personal history of antineoplastic chemotherapy; Z90.2 Acquired absence of lung [part of]; Z20.822 Contact with and (suspected) exposure to COVID-19; I50.9 Heart failure, unspecified; Z95.5 Presence of coronary angioplasty implant and graft; I11.0 Hypertensive heart disease with heart failure; N18.9 Chronic kidney disease, unspecified; E86.0 Dehydration; E78.2 Mixed hyperlipidemia; Z79.899 Other long term (current) drug therapy; Z87.891 Personal history of nicotine dependence; I71.40 Abdominal aortic aneurysm, without rupture, unspecified
CPT/HCPCS: 36415; 71045; 80053; 80061; 81000; 82805; 83605; 83735; 83880; 84100; 84443; 84484; 85007; 85025; 85027; 85610; 85730; 87040; 87070; 87081; 87088; 87205; 87636; 90662; 93005; 93041; 93306; 94640; 94760